=== PATIENT | male | born 1960 | race Caucasian/White ===

== ENCOUNTER 2020-02-10 14:02 | Outpatient (REF) | payer SELFPAY | END 2020-02-10 14:03 | disposition home or self-care (01) | LOC: HO.LAB 14:02 | PROVIDERS: Visit Provider Internal Medicine | DX: Z20.828 Contact with and (suspected) exposure to other viral communicable diseases (principal) | CPT/HCPCS: C9803; U0003 ==

== ENCOUNTER 2023-09-06 13:46 | Outpatient (REF) | payer MEDICARE, MEDICAID, SELFPAY ==
[2023-09-06 16:40] LABS: Alanine Aminotransferase 26 U/L (0-40); Albumin Level 4.4 g/dL (3.5-5.0); Alkaline Phosphatase 115 U/L (39-117); Anion Gap 13 (12-20); Aspartate Amino Transferase 19 U/L (5-37); Bilirubin Total 0.4 mg/dL (0.0-1.0); Blood Urea Nitrogen 17 mg/dL (9-16); Calcium 9.4 mg/dL (8.4-10.2); Carbon Dioxide 22 mmol/L (22-29); Chloride 107 mmol/L (96-108); Cholesterol 172 mg/dL (<200); Estimated Glomerular Filt Rate > 60; Glucose Random 227 mg/dL (60-115); HDL Cholesterol 35 mg/dL (>40); Sodium 138 mmol/L (135-145); Total Protein 7.7 g/dL (6.5-8.0); Triglycerides 533 mg/dL (<150)
== END 2023-09-06 13:47 | disposition home or self-care (01) ==
LOC: HO.HHCL 13:46
PROVIDERS: Visit Provider Registered Nurse
DX: E11.65 Type 2 diabetes mellitus with hyperglycemia (principal); Z79.4 Long term (current) use of insulin
CPT/HCPCS: 36415; 80053; 80061

== ENCOUNTER 2024-07-03 01:53 | Emergency (ER) | payer MEDICARE, SELFPAY ==
[2024-07-03 01:59] VITALS: BP 120/67; PULSE 94; RESP 18; TEMP 36.3; O2SAT 97; BMI 31.7
[2024-07-03 02:53] LABS: MANUAL DIFF FLAG NO
[2024-07-03 02:56] LABS: Basophils Absolute Auto 0.1 X10*3/uL (0.0-0.2); Basophils Percent Auto 0.7 % (0-2); Eosinophils Absolute Auto 0.2 X10*3/uL (0.0-0.4); Eosinophils Percent Auto 2.3 % (0-4); Hematocrit 39.3 % (42.0-52.0); Hemoglobin 13.7 g/dl (14.0-18.0); Imm Gran Abs Auto 0.02 X10*3/uL (0.00-0.03); Imm Gran Pct Auto 0.2 % (0.0-0.4); Mean Corpuscular HGB Conc 34.9 g/dl (31.0-36.0); Mean Corpuscular Hemoglobin 31.2 pg (27.0-33.0); Mean Corpuscular Volume 89.5 fL (80.0-98.0); Mean Platelet Volume 10.5 fL (9.4-12.4); Monocytes Absolute Auto 0.9 X10*3/uL (0.1-1.2); Monocytes Percent Auto 8.6 % (2-11); Neutrophils Percent Auto 59.2 % (45-73); Platelet Count 209 X10*3/uL (160-400); Red Blood Count 4.39 X10*6/uL (4.60-5.80); Red Cell Distribution Width 13.3 % (11.0-16.0); White Blood Count 10.2 X10*3/uL (4.8-10.8)
[2024-07-03 03:24] LABS: Alanine Aminotransferase 33 U/L (0-40); Albumin Level 4.1 g/dL (3.5-5.0); Anion Gap 15 (12-20); Aspartate Amino Transferase 55 U/L (5-37); Bilirubin Total 0.6 mg/dL (0.0-1.0); Blood Urea Nitrogen 16 mg/dL (9-16); Calcium 9.3 mg/dL (8.4-10.2); Carbon Dioxide 23 mmol/L (22-29); Chloride 110 mmol/L (96-108); Creatinine Clr Calc Pharmacy 102.4; Estimated Glomerular Filt Rate > 60; Glucose Random 109 mg/dL (60-115); Potassium 3.9 mmol/L (3.3-5.1); Sodium 144 mmol/L (135-145); Total Protein 7.1 g/dL (6.5-8.0)
[2024-07-03 04:13] LABS: Alkaline Phosphatase 58 U/L (39-117)
[2024-07-03 05:39] VITALS: BP 139/84; PULSE 84; RESP 18; TEMP 36.6; O2SAT 98
[2024-07-03 07:03] LABS: Glucose, Whole Blood 118 mg/dL (60-115)
--- OUTSIDE RECORDS SUMMARY | 2024-07-03 07:13 | XMS_ITS | Clinical Summary ---
Author Organization [employer] Address [address] [place] [address] Care Team Providers Care Credit Processor Name Role Phone [facility] Primary Care Provider [phone] Allergies No known active allergies Medications * This document contains information received from the source organization and may not represent a complete record from that organization. BD AutoShield Duo 30G X 5 MM misc Use as directed to inject insulin four times a day 4 Active aspirin 81 MG EC tablet Take 1 tablet by mouth Once per day. Active cholecalciferol (Vitamin D-3) 25 MCG (1000 UT) tablet Take 1 tablet by mouth Once per day. Active acetaminophen (Tylenol) 325 MG tablet Take 2 tablets by mouth every 4 (four) hours if needed for mild pain. NTE 3 grams/day Active Alcohol Swabs (Alcohol Prep) padsIndications: Type 2 diabetes mellitus with hyperglycemia, with long-term current use of insulin ([facility]) Use one pad each to prep skin prior to injection as directed 100 each 4 Active TRUEplus Lancets 33G miscIndications: Type 2 diabetes mellitus with hyperglycemia, with long-term current use of insulin ([facility]) USE DIRECTED TO TEST BLOOD SUGAR THREE TIMES DAILY 100 each 11 4 Active Continuous Glucose Biological Scientist (FreeStyle Curry 2 [place]) deviceIndication s:Type 2 diabetes mellitus with hyperglycemia, with long-term current use of insulin ([facility]) Scan sensor every 8 hours 1 each 4 Active Continuous Glucose Sensor (FreeStyle Curry 2 Sensor) miscIndications: Type 2 diabetes mellitus with hyperglycemia, with long-term current use of insulin ([facility]) Apply 1 sensor every 14 days 2 each 3 4 Active glucose blood (FREESTYLE LITE) test stripIndications :Type 2 diabetes mellitus with hyperglycemia, with long-term current use of insulin ([facility]) USE DIRECTED TO TEST BLOOD SUGAR THREE TIMES DAILY 100 each 1 4 Active atorvastatin (Lipitor) 20 MG tabletIndication s:Type 2 diabetes mellitus with hyperglycemia, with long-term current use of insulin ([facility]) Take 1 tablet (20 mg) by mouth Once per day. 90 tablet 3 4 11/11/19 25 Active OneTouch Delica Lancets 33G miscIndications: Type 2 diabetes mellitus with hyperglycemia, with long-term current use of insulin ([facility]) Use to test blood sugar three times daily 100 each 11 4 Active Blood Glucose Monitoring Suppl (ONE TOUCH ULTRA 2) w/Device kitIndications:T ype 2 diabetes mellitus with hyperglycemia, with long-term current use of insulin ([facility]) Use to test blood sugar three times daily 1 kit 4 Active glucose blood (OneTouch Ultra) test stripIndications :Type 2 diabetes mellitus with hyperglycemia, with long-term current use of insulin ([facility]) Use to test blood sugar three times daily 100 each 4 11/26/19 25 Active dulaglutide (Trulicity) 1.5 MG/0.5ML solution pen-injectorIndi cations:Type 2 diabetes mellitus without complication, without long-term current use of insulin ([facility]) Inject 1.5 mg under the skin 1 (one) time per week. 4 each 4 Active dorzolamide-mandie lol (Cosopt) 2-0.5 % ophthalmic solutionIndicati ons:Primary open angle glaucoma of both eyes, unspecified glaucoma stage Administer 1 drop into both eyes 2 times daily. 10 mL 5 4 03/05/20 25 Active brimonidine (AlphaGAN P) 0.15 % ophthalmic solutionIndicati ons:Primary open angle glaucoma of both eyes, unspecified glaucoma stage Administer 1 drop into both eyes 2 times daily. 5 mL 5 4 09/02/19 25 Active glucose 4 g chewable tabletIndication s:Type 2 diabetes mellitus without complication, without long-term current use of insulin ([facility]) Chew 4 tablets (16 g) if needed for low blood sugar. 50 tablet 12 4 03/11/20 25 Active losartan (Cozaar) 25 MG tablet TAKE ONE TABLET BY MOUTH EVERY DAY 90 tablet 5 Active Active Problems Problem Noted Date Diagnosed Date Homicidal ideation 06/22/2024 Cannabis use disorder 06/18/2024 Healthcare maintenance 12/17/2023 Overview (12/17/2023): - Previously declined all Type 2 diabetes mellitus wit h hyperglycemia, with long-term current use of insulin 09/17/2023 Overview (12/17/2023): - Does not like CGM Trulicity Foot Exam: Risk 1 10/2023--referred to podiatry for routine foot care Eye Exam: Referred to [facility] Statin: Yes ASA: Yes Bar/Arb: Yes Essential hypertension 09/04/2023 Hyperlipidemia 09/04/2023 Encounters * This document contains information received from the source organization and may not represent a complete record from that organization. Date Type Department Care Team Description 06/17/2024 Patient Outreach [address] [address] Courtney Remy FNP Care Coordination (CHW outreach for [place] housing search-referral completed ) 06/17/[address] [address] Courtney Remy FNP 06/16/[address] [address] Courtney Remy FNP chart prep 06/08/2024 Patient Outreach [address] [address] Courtney Remy FNP Pre-visit Planning ((Unable to reach for PVP screening, LVM)) 04/29/[address] [address] Courtney Remy FNP from Last 3 Months Immunizations Name Administration Dates Next Due Influenza, seasonal, injectable, preservative fr ee 12/18/2023 Pneumococcal Conjugate PCV 20 11/11/2023 Tdap 11/11/2023 Social History Tobacco Use Types Packs/Day Years Used Date Smoking Tobacco: Former Cigarettes Smokeless Tobacco: Never Tobacco Cessation:Counseling Given: Not Answered Alcohol Use Standard Drinks/Week Comments Never 0 (1 standard drink = 0.6 oz pur e alcohol) Alcohol Answer Date Recorded Frequency of Alcohol Consumption Not on file 09/06/2023 Average Number of Drinks Not on file 024 Frequency of Binge Drinking Not on file 08/23 Score 0 09/06/2023 Depression Answer Date Recorded Patient Health Questionnaire-9 Score 8 03/11/2024 Patient Health Questionnaire-9 Score 8 03/11/2024 Last PHQ-9: Questionnaire Data Not on file 1 05/12/2023 Housing Stability Answer Date Recorded What is your housing situation today? I have karin bullock 09/06/[address] you li ve. Do you have problems with any of the following? None of the above 09/06/2023 Food Insecurity Answer Date Recorded Within the past 12 months, y ou worried that your food would run out before you got money to buy more: Never True 09/06/2023 Within the past 12 months,th e food you bought just didn't last and you didn't have enough money to get more: Never True Transportation Answer Date Recorded In the past 12 months, has l ack of transportation kept you from medical appts, meetings, work or from getting things needed for daily living? No 09/06/2023 Utilities Answer Date Recorded In the past 12 months, has t he electric, gas, oil or water company threatened to shut off services in your home? No 09/06/2023 Depression Answer Date Recorded Patient Health Questionnaire-2 Score 2 03/11/2024 Sex and Gender Information Value Date Recorded Sex Assigned at Male 01/22/2022 10:17 AM EDT Legal Sex Male 10:17 AM EDT Gender Identity Male 09/05/2023 2:19 PM EDT Sexual Orientation Don't know 09/05/2023 2: 19 PM EDT Last Filed Vital Signs Vital Sign Reading Time Taken Comments Blood Pressure 128/76 03/11/2024 9:05 AM EST Pulse 64 03/11/2024 9:05 AM EST Temperature 36.5 ??C (97.7 ??F) 03/11/2024 9:05 AM ES T Respiratory Rate 20 03/11/2024 9:05 AM EST Oxygen Saturation 99% 03/11/2024 9:05 AM EST Inhaled Oxygen Concentration - - Weight 113 kg (248 lb 9.6 oz) 03/11/2024 9:05 AM EST Height 185.4 cm (6' 1 ) 03/11/2024 9:05 AM EST Body Mass Index 32.8 03/11/2024 9:05 AM EST Plan of Treatment Upcoming Encounters Date Type Department Care Team (Late st Contact Info) Description 07/08/2024 9:00 AM EDT Office Visit [facility] MEDICINE [address], [place] [phone] [facility] [address] [place], [place] [phone] Health Maintenance Due Date Last Done Comments CT Colonography 1962 Colonoscopy 1962 FIT DNA/Cologuard 1962 FIT 1962 FOBT 1962 HIV Screening 1962 Sigmoidoscopy 1962 Hepatitis C Screening 1980 Diabetes: Urine Protein Screening 1981 Zoster Vaccines (1 of 2) 2012 RSV Patients and Patients Aged 60 years or older (1 - Risk 60-74 years 1-dose series) 2022 Alcohol/Substance Use Screening 09/05/2024 09/06/2023 Lipid Panel 09/05/2024 09/06/2023 SDOH Screening 09/05/2024 09/06/2023 Diabetes: Hemoglobin A1C 09/09/2024 024, 12/18/2023, 09/06/2023 Diabetes: Foot Exam 11/10/2024 11/11/2023, 11/11/2023, 11/11/2023 Depression Screening 03/11/2025 03/11/2024, 03/11/20 24 Tobacco Screening 03/11/2025 03/11/2024 Eye Exam 03/06/2026 03/06/2024, 02/22, 03/05/2024, Additional history exists DTaP/Tdap/Td Vaccines (2 - Td or Tdap) 11/10/2033 11/11/2023 Pneumococcal Vaccine: 50+ Years Completed 11/11/2023 Influenza Vaccine Completed 12/18/2023 COVID-19 Vaccine Completed 03/07/2024, 02/2022, 04/01/2021, Additional history exists Colorectal Cancer Screening Discontinued HIB Vaccines Aged Out No longer eligi ble based on patient's age to complete this topic HPV Vaccines Aged Out No longer eligi ble based on patient's age to complete this topic Hepatitis A Vaccines Aged Out No long er eligible based on patient's age to complete this topic Hepatitis B Vaccines Aged Out No long er eligible based on patient's age to complete this topic IPV Vaccines Aged Out No longer eligi ble based on patient's age to complete this topic Meningococcal Vaccine Aged Out No veda marjorie eligible based on patient's age to complete this topic RSV under 20 months Aged Out No longe r eligible based on patient's age to complete this topic Rotavirus Vaccines Aged Out No longer eligible based on patient's age to complete this topic Procedures Procedure Name Priority Date/Time Associated Diagnosis Comments POCT GLYCATED HEMOGLOBIN, TOTAL Routine 03/11/2024 9:17 AM EST Type 2 diabetes mellitus without complication, without long-term current use of insulin ([facility]) LIPID PANEL, STANDARD Routine 09/06/2023 1:48 PM EDT Type 2 diabetes mellitus with hyperglycemia, with long-term current use of insulin ([facility]) from Last 3 Months or Most Recently Relevant to Health Maintenance Results * (ABNORMAL) POCT HGB A1C (03/11/2024 9:17 AM EST) Hemoglobin A1C 6.2(A) 4.0 - 6.0 % QC Media Lot # [id number] Lot# Expiration Date 176 Blood 03/11/2024 9:17 AM EST [facility] POINT OF CARE TEST ENTER/EDIT ORDERABLES Final Result * (ABNORMAL) Lipid Panel, Standard (09/06/2023 1:48 PM EDT) Triglycerides 533(H) <150 mg/dL [facility] Comment:Desirable Triglyceri de: less than 150 mg/dLBorderline High Triglyceride 150-199 mg/dLHigh Triglyceride: 200-499 mg/dLVery High Triglyceride: greater than or equal to 5OO mg/dL Cholesterol 172 <200 mg/dL [facility] Comment:Desirable Cholestero l: less than 200 mg/dLBorderline High Cholesterol: 200-239 mg/dLHigh Cholesterol: greater than 239 mg/dL LDL Cholesterol Calculated TNP <100 mg/dL [facility] Comment:Unable to calculate the LDL. The formula of Friedwald,Woody, and Ronnie is only valid if the triglycerides areless than 400 mg/dl. HDL Cholesterol 35(L) >40 mg/dL [facility] Comment:Desirable HDL: great er than 40 mg/dL Note: This HDL assay may give artificially low results in patients with liver disease. Blood Venous blood specimen / Unknown 09/06/2023 1:48 PM EDT 09/06/2023 4:11 PM EDT [facility] LAB BLOOD ORDERABLES Final Re sult [facility] [address] [place] [address] [phone] from Last 3 Months or Most Recently Relevant to Health Maintenance [place] [address] [place] [address] STANDARD [employer] MED[employer]ARE REPLACEMENT [id number] Care Teams Credit Processor Relationship Specialty Start Date End Date Courtney Remy FNP [address] [place] [phone] PCP - General Family Medicine 09/09/23
--- OUTSIDE RECORDS SUMMARY | 2024-07-03 07:13 | XMS_ITS | Clinical Summary ---
Author Organization [address] [facility] Address [address] [place] [address] Phone Care Team Providers Care Bass Fisher Name Role Phone Sandrita Courtney Primary Care Provider [phone] Allergies No known active allergies Medications atorvastatin (LIPITOR) 20 mg tablet Take 1 tablet (20 mg total) by mouth 1 (one) time each day. Active clotrimazole (LOTRIMIN) 1 % cream Apply to skin and toenails daily for 12 weeks 01/20/2024 Active dulaglutide (Trulicity) 1.5 mg/0.5 mL pen injector injection Inject 1.5 mg into the skin every 24 hours. Active insulin aspart (Fiasp U-100 Insulin) 100 unit/mL injection Inject 100 Units as directed daily. Active insulin glargine (LANTUS SoloStar) 100 unit/mL (3 mL) injection pen Inject 100 Units into the skin. Active losartan (COZAAR) 25 mg tablet Take 1 tablet (25 mg total) by mouth 1 (one) time each day. Active Active Problems Problem Noted Date Diagnosed Date Mixed hyperlipidemia 01/07/2024 T2DM (type 2 diabetes mellitus) (CMS/[facility] V24, CM S/[facility] V28) 01/07/2024 Encounters Date Type Department Care Team Description 04/21/2024 1:00 PM EST Office Visit Orthopedic Surgery - [place] [address] [facility] [address] [place] [address] Ponce Lozano DPM Controlled type 2 diabetes with neuropathy (CMS/[facility] V24, CMS/[facility] V28) (Primary Dx); Arthritis of both feet; PVD (peripheral vascular disease) ([facility] V24); Dermatophytosis, nail 04/16/2024 5:16 PM EST - 04/16/2024 9:00 PM EST Emergency [facility] Emergency [address] [place] [phone] Yonny Roman DO Chest pain, unspecified type (Primary Dx) Discharge Disposition: Home or Self Care from Last 3 Months Social History Tobacco Use Types Packs/Day Years Used Date Smoking Tobacco: Never Assessed Sex and Gender Information Value Date Recorded Sex Assigned at Male 04/16/2024 5:40 PM EST Legal Sex Male 11:39 AM EDT Gender Identity Male 04/16/2024 5:40 PM EST Sexual Orientation Straight 04/16/2024 5: 40 PM EST Last Filed Vital Signs Vital Sign Reading Time Taken Comments Blood Pressure 125/83 04/16/2024 5:56 PM EST Pulse 88 04/16/2024 5:56 PM EST Temperature 36.7 ??C (98.1 ??F) 04/16/2024 5:56 PM ES T Respiratory Rate 18 04/16/2024 5:56 PM EST Oxygen Saturation 98% 04/16/2024 5:56 PM EST Inhaled Oxygen Concentration - - Weight 113 kg (250 lb) 04/21/2024 1:04 PM EST Height 185.4 cm (6' 1 ) 04/16/2024 12:58 PM EST Body Mass Index 32.98 04/16/2024 12:58 PM EST Plan of Treatment Upcoming Encounters Date Type Department Care Team (Late st Contact Info) Description 07/20/2024 1:00 PM EDT Office Visit Orthopedic Surgery - [place] [address] [phone] Ponce Lozano, TOMMY [address] [address] Health Maintenance Due Date Last Done Comments Diabetes: Annual Foot Exam 1972 Diabetes: Annual Retina Eye Exam 1972 Zoster Vaccines (1 of 2) 2012 RSV Immunization Adult Patients (1 - Risk 60-74 years 1-dose series) 2022 Colorectal Cancer Screening: Colonoscopy 01/05/2024 HIV Screening 01/05/2024 Hepatitis C Screening 01/05/2024 Medicare Annual Wellness Visit 01/05/2024 Social Influencers of Health Screening 01/05/2024 Diabetes: Annual Urine Albumin-Creatinine Ratio (uACR) 01/22/2024 Diabetes: Blood Sugar Control Test (HGBA1C) 09/09/2024 03/11/2024 Depression Screening 03/11/2025 03/11/2024 Diabetes: Annual GFR (Glomerular Filtration Rate) 04/16/2025 04/16/2024 Hypertension/CHF/CAD Annual BMP Blood Test 04/16/2025 04/16/2024 Cholesterol Screening (Lipid Panel) 09/05/2028 09/06/2023 DTaP,Tdap,and Td Vaccines (2 - Td or Tdap) 11/10/2033 11/11/2023 Pneumococcal Vaccine: 50+ Years Completed 11/11/2023 Pneumococcal Vaccine: Pediatrics (0 to 5 Years) and At-Risk Patients (6 to 64 Years) Completed 11/11/2023 Influenza Vaccine Completed 12/18/2023 COVID-19 Vaccine Completed 03/07/2024, 02/2022, 04/01/2021, Additional history exists HIB Vaccines Aged Out No longer eligi [...] on patient's age to complete this topic MMR Vaccines Aged Out No longer eligi ble based on patient's age to complete this topic Meningococcal ACWY Vaccine Aged Out N o longer eligible based on patient's age to complete this topic Meningococcal B Vaccine Aged Out No l onger eligible based on patient's age to complete this topic RSV Immunization Patients Under 20 months Aged Out No longer eligible based on patient's age to complete this topic Varicella Vaccines Aged Out No longer eligible based on patient's age to complete this topic Procedures Procedure Name Priority Date/Time Associated Diagnosis Comments TROPONIN I HIGH SENSITIVITY STAT 04/16/2024 6:17 PM EST XR CHEST 2 VIEWS STAT 04/16/2024 3:49 PM EST CBC WITH AUTO DIFFERENTIAL STAT 04/16/2024 3:36 PM EST B-TYPE NATRIURETIC PEPTIDE STAT 04/16/2024 3:36 PM EST MAGNESIUM STAT 04/16/2024 3:36 PM EST LIPASE STAT 04/16/2024 3:36 PM EST COMPREHENSIVE METABOLIC PANEL STAT 04/16/2024 3:36 PM EST CBC AND DIFFERENTIAL STAT 04/16/2024 3:36 PM EST TROPONIN I HIGH SENSITIVITY STAT 04/16/2024 3:36 PM EST ECG 12-LEAD STAT 04/16/2024 1:09 PM EST ECG ANNOTATED 04/16/2024 from Last 3 Months Results * Troponin I high sensitivity (04/16/2024 6:17 PM EST) Only the most recent of2 resultswithin the time period is included. High Sensitivity Troponin I 4 <=79 ng/L LAB CHEMISTRY METHOD 04/16/2024 7:04 PM EST [facility] Blood Venous blood specimen / Unknown Venipuncture / Unknown 04/16/2024 6:17 PM EST 04/16/2024 6:20 PM EST Narrative [facility] - 04/16/2024 7:04 PM EST High levels of biotin in samples may falsely decrease hsTroponin values. ??Use caution when interpreting hsTroponin results in patients taking biotin who exhibit renal impairment (eGFR <60) or in patients taking more than 20 mg/day of biotin. Scout Florez MD LAB BLOOD ORDERABLES Elsy l Result [facility] [address] [place] [address], [place] [phone] * XR Chest 2 Views (04/16/2024 3:49 PM EST) Anatomical Region Laterality Modality Body Radiographic Bethany ging 04/16/2024 4:04 PM EST Impressions 04/16/2024 4:04 PM EST No evidence of active pulmonary disease. [id number] -------- FINAL REPORT -------- Dictated By: Ward Felix Dictated Date: 04/16/2024 16:04 ET Assigned Physician: Ward Felix Reviewed and Electronically Signed By: Ward Felix Signed Date: 04/16/2024 16:04 ET Workstation ID: [id number] Transcribed By: Self Edit Transcribed Date: 04/16/2024 16:04 ET Narrative 04/16/2024 4:04 PM EST INDICATION: Chest pain FINDINGS: Two views of the chest were obtained. There are no prior studies available for comparison. Lung paula are well inflated without infiltrates or effusions. Cardiomediastinal silhouette is normal in size and shape. Bony structures are within normal limits for the patient's age. Procedure Note Ward Felix MD - 04/16/2024 INDICATION: Chest pain FINDINGS: Two views of the chest were obtained. There are no prior studiesavailable for comparison. Lung paula are well inflated without infiltrates or effusions. Cardiomediastinal silhouette is normal in size and shape. Bony structures are within normal limits for the patient's age. IMPRESSION: No evidence of active pulmonary disease. [id number] -------- FINAL REPORT -------- Dictated By: Ward Felix Dictated Date: 04/16/2024 16:04 ET Assigned Physician: Ward Felix Reviewed and Electronically Signed By: Ward Felix Signed Date: 04/16/2024 16:04 ET Workstation ID: [id number] Transcribed By: Self Edit Transcribed Date: 04/16/2024 16:04 ET us Scout Florez MD IMG XR PROCEDURES Final R esult * (ABNORMAL) CBC auto differential (04/16/2024 3:36 PM EST) [facility] WBC 12.6(H) 4.8 - 10.8 K/mcL LAB HEMETOLOGY METHOD 04/16/2024 4:11 PM [facility] RBC 5.10 4.50 - 5.50 M/mcL LAB HEMETOLOGY METHOD 04/16/2024 4:11 PM [facility] Hemoglobin 15.7 13.5 - 17.5 g/dL LAB HEMETOLOGY METHOD 04/16/2024 4:11 PM [facility] Hematocrit 47.3 42.0 - 54.0 % LAB HEMETOLOGY METHOD 04/16/2024 4:11 PM [facility] MCV 92.2 79.0 - 98.0 FL LAB HEMETOLOGY METHOD 04/16/2024 4:11 PM [facility] MCH 30.6 27.0 - 32.0 pcg LAB HEMETOLOGY METHOD 04/16/2024 4:11 PM [facility] MCHC 33.2 32.0 - 37.0 g/dL LAB HEMETOLOGY METHOD 04/16/2024 4:11 PM [facility] RDW 13.1 11.0 - 15.0 % LAB HEMETOLOGY METHOD 04/16/2024 4:11 PM [facility] Platelets 213 130 - 400 K/mcL LAB HEMETOLOGY METHOD 04/16/2024 4:11 PM [facility] MPV 11.4(H) 7.0 - 11.0 FL LAB HEMETOLOGY METHOD 04/16/2024 4:11 PM [facility] NRBC 0.0 <1.0 % LAB HEMETOLOGY METHOD 04/16/2024 4:11 PM [facility] NRBC Absolute 0.00 <0.10 K/mcL LAB HEMETOLOGY METHOD 04/16/2024 4:11 PM [facility] Neutrophils Relative 58.6 % LAB HEMETOLOGY METHOD 04/16/2024 4:11 PM [facility] Lymphocytes Relative 31.4 % LAB HEMETOLOGY METHOD 04/16/2024 4:11 PM [facility] Monocytes Relative 7.8 % LAB HEMETOLOGY METHOD 04/16/2024 4:11 PM [facility] Eosinophils Relative 1.0 % LAB HEMETOLOGY METHOD 04/16/2024 4:11 PM [facility] Basophils Relative 0.7 % LAB HEMETOLOGY METHOD 04/16/2024 4:11 PM [facility] Immature Granulocytes Relative 0.5 % LAB HEMETOLOGY METHOD 04/16/2024 4:11 PM [facility] Neutrophils Absolute 7.36(H) 1.50 - 7.00 K/mcL LAB HEMETOLOGY METHOD 04/16/2024 4:11 PM [facility] Lymphocytes Absolute 3.95 1.00 - 5.00 K/mcL LAB HEMETOLOGY METHOD 04/16/2024 4:11 PM [facility] Monocytes Absolute 0.98 0.20 - 1.00 K/mcL LAB HEMETOLOGY METHOD 04/16/2024 4:11 PM [facility] Eosinophils Absolute 0.13 0.00 - 0.50 K/mcL LAB HEMETOLOGY METHOD 04/16/2024 4:11 PM [facility] Basophils Absolute 0.09 0.00 - 0.20 K/mcL LAB HEMETOLOGY METHOD 04/16/2024 4:11 PM [facility] Immature Granulocytes Absolute 0.06(H) 0.00 - 0.03 K/mcL LAB HEMETOLOGY METHOD 04/16/2024 4:11 PM EST [facility] Blood Venous blood specimen / Unknown Venipuncture / Unknown 04/16/2024 3:36 PM EST 04/16/2024 4:01 PM EST Scout Florez MD LAB BLOOD ORDERABLES Elsy l Result Performing Organization Address City/[facility]/ZIP Co de Phone Number [facility] [address] [place] [address], [place] [phone] * B-type natriuretic peptide (04/16/2024 3:36 PM EST) [facility] BNP <2 <=100 pcg/mL LAB CHEMISTRY METHOD 04/16/2024 4:47 PM EST [facility] Blood Venous blood specimen / Unknown Venipuncture / Unknown 04/16/2024 3:36 PM EST 04/16/2024 4:01 PM EST Scout Florez MD LAB BLOOD ORDERABLES Elsy l Result Performing Organization Address [facility] Co de Phone Number [facility] [address] [place] [address], [place] [phone] * Magnesium (04/16/2024 3:36 PM EST) [facility] Magnesium 2.4 1.9 - 2.6 mg/dL LAB CHEMISTRY METHOD 04/16/2024 4:37 PM EST [facility] Blood Venous blood specimen / Unknown Venipuncture / Unknown 04/16/2024 3:36 PM EST 04/16/2024 4:01 PM EST Scout Florez MD LAB BLOOD ORDERABLES Elsy l Result Performing Organization Address City/[facility]/ZIP Co de Phone Number [facility] [address] [place] [address], [place] [phone] * (ABNORMAL) Lipase (04/16/2024 3:36 PM EST) [facility] Lipase 79(H) 13 - 75 unit/L LAB CHEMISTRY METHOD 04/16/2024 4:37 PM [facility] Blood Venous blood specimen / Unknown Venipuncture / Unknown 04/16/2024 3:36 PM EST 04/16/2024 4:01 PM EST Scout Florez MD LAB BLOOD ORDERABLES Elsy l Result [facility] [address] [place] [address], [place] [phone] * Comprehensive metabolic panel (04/16/2024 3:36 PM EST) [facility] Sodium 142 133 - 145 mmol/L LAB CHEMISTRY METHOD 04/16/2024 4:39 PM [facility] Potassium 4.0 3.5 - 5.5 mmol/L LAB CHEMISTRY METHOD 04/16/2024 4:39 PM [facility] Chloride 108 96 - 110 mmol/L LAB CHEMISTRY METHOD 04/16/2024 4:39 PM [facility] CO2 29 21 - 32 mmol/L LAB CHEMISTRY METHOD 04/16/2024 4:39 PM [facility] Anion Gap 5 3 - 11 LAB CHEMISTRY METHOD 04/16/2024 4:39 PM [facility] Glucose 99 70 - 100 mg/dL LAB CHEMISTRY METHOD 04/16/2024 4:39 PM [facility] BUN 22 5 - 25 mg/dL LAB CHEMISTRY METHOD 04/16/2024 4:39 PM [facility] Creatinine 1.16 0.70 - 1.30 mg/dL LAB CHEMISTRY METHOD 04/16/2024 4:39 PM [facility] eGFR 72 >=60 mL/min/1. 73m2 LAB CHEMISTRY METHOD 04/16/2024 4:39 PM [facility] Comment:Calculation based on the??Chronic Kidney Disease Epidemiology Collaboration (CKD-EPI) equation refit??without adjustment for race. BUN/Creatinine Ratio 19.0 LAB CHEMISTRY METHOD 04/16/2024 4:39 PM [facility] Calcium 9.4 8.5 - 10.5 mg/dL LAB CHEMISTRY METHOD 04/16/2024 4:39 PM [facility] AST (SGOT) 17 10 - 42 unit/L LAB CHEMISTRY METHOD 04/16/2024 4:39 PM [facility] ALT (SGPT) 25 10 - 60 unit/L LAB CHEMISTRY METHOD 04/16/2024 4:39 PM [facility] Alkaline Phosphatase 74 42 - 121 unit/L LAB CHEMISTRY METHOD 04/16/2024 4:39 PM [facility] Total Protein 8.0 6.0 - 8.0 g/dL LAB CHEMISTRY METHOD 04/16/2024 4:39 PM [facility] Albumin 4.3 3.2 - 5.0 g/dL LAB CHEMISTRY METHOD 04/16/2024 4:39 PM [facility] Total Bilirubin 0.6 0.0 - 1.4 mg/dL LAB CHEMISTRY METHOD 04/16/2024 4:39 PM [facility] Blood Venous blood specimen / Unknown Venipuncture / Unknown 04/16/2024 3:36 PM EST 04/16/2024 4:01 PM EST us Scout Florez MD LAB BLOOD ORDERABLES Elsy angelica Result [facility] [address] [place] [address], * ECG 12 lead (04/16/2024 1:09 PM EST) Ventricular Rate ECG 89 BPM GEMUSE Atrial Rate 89 BPM GEMUSE P-R Interval 170 ms GEMUSE QRS Duration 82 ms GEMUSE Q-T Interval 362 ms GEMUSE QTc 440 ms GEMUSE P Wave [place] 50 degrees GEMUSE R [place] -17 degrees GEMUSE T [place] 51 degrees GEMUSE ECG Interpretation Normal sinus rhythm Normal ECG No previous ECGs available Confirmed by Lester HUNG JOHN ([id number]) on 04/16/2024 4:54:03 PM GEMUSE 04/16/2024 1:09 PM EST 04/16/2024 4:54 PM EST Scout Florez MD ECG ORDERABLES Final Res ult GEMUSE * ECG-Annotated (04/16/2024) Provider Onbase ECG ORDERABLES Final Result from Last 3 Months Insurance MEDICARE ADVANTAGE MEDICAID - [place] Care Teams Bass Fisher Relationship Specialty Start Date End Date [facility] [address] [place] [phone] PCP - General 11/22/23
--- OUTSIDE RECORDS SUMMARY | 2024-07-03 07:13 | XMS_ITS | Encounter Summary ---
Author Organization [employer] Address [address] [place] [address] Care Team Providers Care Rougher Helper Name Role Phone [facility] Primary Care Provider [phone] Encounter Details Date Type Department Care Team ([facility] st Contact Info) Description 10/11/2023 Orders Only [facility]INE [address] [place], [place] [phone] Rebeka Dickey MD [address] [place], [place] [phone] Social History Tobacco Use Types Packs/Day Years Used Date Smoking Tobacco: Former Cigarettes Smokeless Tobacco: Never Alcohol Use Standard Drinks/Week Comments Never 0 (1 standard drink = 0.6 oz pur e alcohol) Alcohol Answer Date Recorded Frequency of Alcohol Consumption Not on file 09/06/2023 Average Number of Drinks Not on file 024 Frequency of Binge Drinking Not on file 08/23 Score 0 09/06/2023 Depression Answer Date Recorded Patient Health Questionnaire-9 Score 0 09/06/2023 Patient Health Questionnaire-9 Score 0 09/06/2023 Last PHQ-9: Questionnaire Data Not on file 0 09/06/2023 Housing Stability Answer Date Recorded What is [...] Answer Date Recorded Patient Health Questionnaire-2 Score 0 09/06/2023 Sex and Gender Information Value Date Recorded Sex Assigned at Male 01/22/2022 10:17 AM EDT Legal Sex Male 10:17 AM EDT Gender Identity Male 09/05/2023 2:19 PM EDT Sexual Orientation Don't know 09/05/2023 2: 19 PM EDT documented as of this encounter Plan of Treatment Upcoming Encounters Date Type Department Care Team (Late st Contact Info) Description 07/08/2024 9:00 AM EDT Office Visit [facility] MED[facility]INE [address] [place] [address] Courtney Remy FNP [address] [place] [address] documented as of this encounter Visit Diagnoses Not on filedocumented in this encounter Additional Health Concerns Assessment Noted Time PHQ-9 Depression Total Score: 0 09/06/19 24 12:53 PM EDT documented as of this encounter Care Teams Rougher Helper Relationship Specialty Start Date End Date Courtney Remy FNP [address] [place] [address] PCP - General Family Medicine 09/09/23 documented as of this encounter
--- OUTSIDE RECORDS SUMMARY | 2024-07-03 07:13 | XMS_ITS | Encounter Summary ---
Author Organization [employer] Address [address] [place] [address] Care Team Providers Care Equipment Specialist Name Role Phone [facility] Primary Care Provider [phone] Reason for Visit * Reason Onset Date Comments Med Refill 12/02/2023 Encounter Details Date Type Department Care Team ([facility] st Contact Info) Description 12/02/2023 Telephone [facility] MEDICINE [address] [place], [place] [phone] [facility] [address] [place] [address] Med Refill Social History Tobacco Use Types Packs/Day Years [...] Date Recorded Patient Health Questionnaire-9 Score 0 11/11/2023 Patient Health Questionnaire-9 Score 0 11/11/2023 Last PHQ-9: Questionnaire Data Not on file 0 11/11/2023 Housing Stability Answer Date Recorded What is [...] Date Recorded Patient Health Questionnaire-2 Score 0 11/11/2023 Sex and Gender Information Value Date Recorded Sex Assigned at Male 01/22/2022 10:17 AM EDT Legal Sex Male 10:17 AM EDT Gender Identity Male 09/05/2023 2:19 PM EDT Sexual Orientation Don't know 09/05/2023 2: 19 PM EDT documented as of this encounter Miscellaneous Notes * Telephone Encounter - Opal Rai LPN - 12/02/2023 2:09 PM EDT See TC from 11/26/23 supplies sent. * Telephone Encounter - Parisa Ocampo - 12/02/2023 2:01 PM EDT TC from pt requesting medication refill. Medications needing refill : glucose blood (FREESTYLE LITE) test strip To be sent to: [facility] - [place], [place] - [address] [place] [address] documented in this encounter Plan of Treatment Upcoming Encounters Date Type Department Care Team (Late st Contact Info) Description 07/08/2024 9:00 AM EDT Office Visit [facility] MEDICINE [address] [place] [address] [place], Courtney, SENIOR FIELD SERVICE ENGINEER [address] [place] [address] documented as of this encounter Visit Diagnoses Not on filedocumented in this encounter Additional Health Concerns Assessment Noted Time PHQ-9 Depression Total Score: 0 11/11/19 11:00 AM EDT documented as of this encounter Care Teams Equipment Specialist Relationship Specialty Start Date End Date Courtney Remy FNP [address] [place] [address] PCP - General Family Medicine 09/09/23 documented as of this encounter
--- NOTE | 2024-07-03 07:43 | PC.NURSE ---
Pt biba for low blood sugar, per EMS poc was 97 en route, poc upon arrival 118. Pt a/ox3, respirations even and unlabored, no increased wob, endorsing sob- speaking in full sentences, maintaining O2 sat mid 90s on RA. Denies cp/abd pain, n/v/d. Pt stated to registration he would like to speak with crisis. Pt changed over with security and technology applications consultant Deja. Pt calm/cooperative with staff, denies SI, endorsing HI. States his family recently got evicted from their apartment and are living in the [place] in a tent. Denies ETOH use/ endorsing marijuana use- denies other substances. boiler washer made aware of pt situation. Plan for labs and assessment from CARE team. Call strange within reach, all needs met at this time.
[2024-07-03 07:48] VITALS: BP 118/75; PULSE 76; RESP 18; TEMP 36.7; O2SAT 94
--- NOTE | 2024-07-03 08:03 | ED_ITS ---
HPI - General Adult General Chief complaint: General Medical Stated complaint: Pt wants eval on blood sugar at 90 & nervous Time Seen by Provider: 07/03/24 07:55 History of Present Illness HPI narrative: Patient is 63 years old history of being homeless. Has a history of diabetes. Patient was outside. Worry about his sugar came to the ER. Has no chest pain or shortness breath no dizziness no nausea no vomiting no SI wants to talk to care team. Related Data Allergies Allergy/AdvReac Type Severity Reaction Status Date / Time No Known Allergies Allergy Verified 07/03/24 02:01 Review of Systems 2 Review of Systems: No chest pain or shortness breath no nausea no vomiting Yes all other systems are reviewed and are negative [facility] Past Medical History Attestation statement: The following information was validated with the patient. Social History Social History Smoked in Last 30 Days: No Use of substances other than those prescribed or required for medical reasons: No Advance Directives: No Advance Directives Information Provided: Yes Do you have a plan to hurt others: No Plan Physical Exam ED Vital Signs: Vital Signs - 24 hr 07/03/24 01:59 07/03/24 05:39 07/03/24 07:48 Temperature 97.3 F 97.8 F 98.0 F Pulse Rate 94 84 76 Respiratory Rate 18 18 18 Blood Pressure 120/67 139/84 118/75 Pulse Oximetry 97 98 94 Oxygen Delivery Method Room Air Room Air Room Air BMI result Body Mass Index 31.7 Appearance: Alert. Oriented X3. No acute distress. Eyes: Pupils equal, round and reactive to light. ENT: Pharynx normal. Neck: Normal inspection. Neck supple. No lymph nodes noted. No crepitus CVS: Normal heart rate and rhythm. Pulses normal. Normal S1 and S2 Respiratory: No respiratory distress. Breath sounds normal. No Wheezing. No rales Abdomen: Soft and nontender. No rigidity. No distention. good BS x4 Skin: Skin warm and dry. Normal skin color. Normal skin turgor. Extremities: No lower extremity edema. Neurovascular intact to all extremities. No Lacerations. No Rash Neuro: Oriented X 3. No motor deficit. No sensory deficit. Moving all extermities. No slurred speech Medical Decision Making Medical Decision Making MDM Narrative: Patient is 63-year-old male presented today worry about his sugar. Patient's electrolytes showed a glucose of 109. No acute distress well-appearing awaiting evaluation by care team as patient claims he has homicidal tendencies. He is also homeless. Differential Diagnosis Differential Diagnoses: The differential diagnosis associated with the presentation includes Admission/Observation Consideration of admission/observation: Escalation of care including admission/observation considered Sugar is 109 no need to admit Consult Healthcare Provider Management of the patient was discussed with: Behavioral Health Provider Lab Data 07/03/24 02:49 07/03/24 02:49 Labs: Lab Results 07/03/24 07/03/24 07/03/24 Range/Units 02:49 02:53 08:14 WBC 10.2 (4.8-10.8) X10*3/uL RBC 4.39 L (4.60-5.80) X10*6/uL Hgb 13.7 L (14.0-18.0) g/dl Hct 39.3 L (42.0-52.0) % MCV 89.5 (80.0-98.0) fL MCH 31.2 (27.0-33.0) pg MCHC 34.9 (31.0-36.0) g/dl RDW 13.3 (11.0-16.0) % Plt Count 209 (160-400) X10*3/uL MPV 10.5 (9.4-12.4) fL Immature Gran % (Auto) 0.2 (0.0-0.4) % Neut % (Auto) 59.2 (45-73) % Lymph % (Auto) 29.0 (20-40) % [place] % (Auto) 8.6 (2-11) % Eos % (Auto) 2.3 (0-4) % Baso % (Auto) 0.7 (0-2) % Lymph # (Auto) 3.0 (1.2-4.9) X10*3/uL [place] # (Auto) 0.9 (0.1-1.2) X10*3/uL Eos # (Auto) 0.2 (0.0-0.4) X10*3/uL Baso # (Auto) 0.1 (0.0-0.2) X10*3/uL Abs Immat Gran (auto) 0.02 (0.00-0.03) X10*3/uL Absolute Neuts (auto) 6.0 (2.0-8.3) x10*3/uL Absolute Nucleated RBC 0.000 (0.0-0.012) X10*3/uL Nucleated RBC % (auto) 0.0 (0.0-0.2) /100WBC Sodium 144 (135-145) mmol/L Potassium 3.9 (3.3-5.1) mmol/L Chloride 110 H (96-108) mmol/L Carbon Dioxide 23 (22-29) mmol/L Anion Gap 15 (12-20) BUN 16 (9-16) mg/dL Creatinine 0.98 (0.5-1.4) mg/dL Estim Creat Clear Calc 102.4 Estimated GFR > 60 POC Glucose 118 H (60-115) mg/dL Random Glucose 109 (60-115) mg/dL Calcium 9.3 (8.4-10.2) mg/dL Total Bilirubin 0.6 (0.0-1.0) mg/dL AST 55 H (5-37) U/L ALT 33 (0-40) U/L Alkaline Phosphatase 58 (39-117) U/L Total Protein 7.1 (6.5-8.0) g/dL Albumin 4.1 (3.5-5.0) g/dL Salicylates < 5.0 L (15-30) mg/dL Acetaminophen < 3 (<30) mcg/mL Social Determinants Patient?s care significantly limited by Social Determinants of Health including: Problems related to primary support group and Unemployment Discharge Plan Discharge Clinical Impression: Diabetes Patient Disposition: Home, Self-Care Instructions: Diabetes and Nutrition (ED), Diabetes and Exercise (ED) Referrals: Courtney Remy FNP [Primary Care Provider] - 07/06/24 Print Language: Nepali
[2024-07-03 08:52] LABS: Acetaminophen LAB < 3 mcg/mL (<30); Salicylate < 5.0 mg/dL (15-30)
[2024-07-03 11:15] VITALS: BP 119/78; PULSE 78; RESP 19; TEMP 36.4; O2SAT 97
[2024-07-03 11:39] VITALS: BP 119/78; PULSE 78; RESP 19; TEMP 36.4; O2SAT 97
== END 2024-07-03 11:39 | disposition home or self-care (01) ==
PROVIDERS: Emergency Provider Emergency Medicine Emergency Medical Services; PCP Registered Nurse
DX: E11.65 Type 2 diabetes mellitus with hyperglycemia (principal); Z79.899 Other long term (current) drug therapy
CPT/HCPCS: 36415; 80053; 80143; 80179; 82947; 85025; 99283; 99284

== ENCOUNTER 2024-07-06 20:48 | Inpatient (IN) | payer OTHER, SELFPAY ==
--- NOTE | ~2024-07-06 | CT_ITS ---
CLINICAL HISTORY: New onset personality change? CT head without contrast Comparison: None Findings: The size and shape of the ventricular system is within normal limits for this patient's age. Minor areas of low-attenuation are seen within the periventricular and deep white matter. Ovalle-white differentiation is well maintained. No midline shift or mass effect. No intracranial hemorrhage. No calvarial fractures. Minimal to mild mucosal thickening within the anterior ethmoid air cells, [id number]. There is a 5 mm osteoma within the right anterior ethmoid air cells. Minor mucosal thickening along the inferior bilateral frontal sinuses. IMPRESSION: 1. No acute intracranial findings. Specifically, no hemorrhage or acute territorial infarct. 2. Minimal to mild paranasal sinus disease. This document has been electronically signed by: Adrián Gary MD on 07/07/2024 00:13:11
[2024-07-06 20:54] VITALS: BP 127/71; PULSE 98; RESP 18; TEMP 36.1; O2SAT 95; BMI 31.7
--- NOTE | 2024-07-06 21:42 | ED.PSYCH ---
HPI - Psych General Chief Complaint: Psychiatric Symptoms Stated Complaint: crisis with hurting self and others Time Seen by Provider: 07/06/24 21:10 Source: patient Mode of arrival: EMS Limitations: no limitations History of Present Illness ED Provider: HPI Narrative: Patient's history of depression homeless for last 2 weeks feeling increasingly depressed and suicidal and homicidal with no plan noncompliant to his medications no substance abuse Related Data Home Medications ?Medication ?Instructions ?Recorded ?Confirmed atorvastatin 20 mg tablet 20 mg PO DAILY 07/06/24 07/06/24 dulaglutide 1.5 mg/0.5 mL 1.5 mg subcut QWEEK 07/06/24 07/06/24 subcutaneous pen injector (Trulicity) losartan 25 mg tablet 25 mg PO DAILY 07/06/24 07/06/24 Allergies Allergy/AdvReac Type Severity Reaction Status Date / Time No Known Allergies Allergy Verified 07/06/24 20:58 Review of Systems Review of Systems: Yes all other systems are reviewed and are negative [facility] Social History Social History Patient Tobacco Use Status: Never used Tobacco Smoked in Last 30 Days: No Advance Directives: No Advance Directives Information Provided: Yes Do you have a plan to hurt others: No Plan Nutrition Risks: No Nutritional Risk Physical Exam Vital Signs: Vital Signs: Last Vital Signs Temp 98.5 F 07/07/24 08:33 Pulse 71 07/07/24 08:33 Resp 16 07/07/24 08:33 BP 115/66 07/07/24 08:33 Pulse Ox 96 07/07/24 08:33 O2 Del Method Room Air 07/07/24 08:33 BMI result Body Mass Index 31.7 Appearance: Alert. Oriented X3. No acute distress. Eyes: PERRLA, No Nystagmus ENT: Pharynx normal. Oral Mucosa moist Neck: Normal inspection. Neck supple. CVS: Normal heart rate and rhythm. Pulses normal. Respiratory: No respiratory distress. Equal air entry bilateral, no wheezing/rales/rhonchi Abdomen: Soft and nontender. Bowel sounds are present, no mass palpable, no CVA tenderness Skin: Skin warm and dry. Normal skin color. Normal skin turgor. Extremities: No lower extremity edema. No calf tenderness psych: Fused frustrated and depressed suicidal and homicidal ideation no delusion or hallucination Neuro: Oriented X 3. No motor deficit. No sensory deficit.No cerebellar signs , cranial nerves II-XII intact Course Reevaluation(s) Reevaluation #1: Time: 09:01 Date: 07/07/24 Provider: Ervin Tipton MD Patient in physician observation for psychiatric evaluation.? No acute events reported overnight. No current complaints. VS stable.? Patient is in bed search status/pending CARE team evaluation. Will continue to monitor. Reevaluation #2: pt will be admited to M3 Time: 13:02 Medications Administered Discontinued Medications Generic Name Dose Route Start Last Admin Trade Name Freq PRN Reason Stop Dose Admin Atorvastatin Calcium 20 mg 07/07/24 09:00 07/07/24 08:33 Atorvastatin Calcium 20 Mg Tablet PO Not Given DAILY RICKEY Losartan Potassium 25 mg 07/07/24 09:00 07/07/24 08:34 Losartan Potassium 25 Mg Tablet PO Not Given DAILY RICKEY Protocol Medical Decision Making Medical Decision Making [facility] Narrative: Patient with history of depression SI and HI homeless medically cleared for care team to evaluate the patient, noncompliant to his medications Lab Data [facility] Lab Attestation statement: I reviewed the patient's lab results. 07/06/24 21:43 07/06/24 21:43 Labs: Lab Results 07/06/24 07/06/24 Range/Units 21:43 22:01 WBC 11.4 H (4.8-10.8) X10*3/uL RBC 4.29 L (4.60-5.80) X10*6/uL Hgb 13.5 L (14.0-18.0) g/dl Hct 39.2 L (42.0-52.0) % MCV 91.4 (80.0-98.0) fL MCH 31.5 (27.0-33.0) pg MCHC 34.4 (31.0-36.0) g/dl RDW 13.5 (11.0-16.0) % Plt Count 192 (160-400) X10*3/uL MPV 11.2 (9.4-12.4) fL Immature Gran % (Auto) 0.4 (0.0-0.4) % Neut % (Auto) 68.9 (45-73) % Lymph % (Auto) 22.0 (20-40) % [place] % (Auto) 6.7 (2-11) % Eos % (Auto) 1.5 (0-4) % Baso % (Auto) 0.5 (0-2) % Lymph # (Auto) 2.5 (1.2-4.9) X10*3/uL [place] # (Auto) 0.8 (0.1-1.2) X10*3/uL Eos # (Auto) 0.2 (0.0-0.4) X10*3/uL Baso # (Auto) 0.1 (0.0-0.2) X10*3/uL Abs Immat Gran (auto) 0.04 H (0.00-0.03) X10*3/uL Absolute Neuts (auto) 7.8 (2.0-8.3) x10*3/uL Absolute Nucleated RBC 0.000 (0.0-0.012) X10*3/uL Nucleated RBC % (auto) 0.0 (0.0-0.2) /100WBC Sodium 145 (135-145) mmol/L Potassium 4.0 (3.3-5.1) mmol/L Chloride 113 H (96-108) mmol/L Carbon Dioxide 25 (22-29) mmol/L Anion Gap 11 L (12-20) BUN 17 H (9-16) mg/dL Creatinine 1.14 (0.5-1.4) mg/dL Estim Creat Clear Calc 88.0 Estimated GFR > 60 Random Glucose 114 (60-115) mg/dL Calcium 9.5 (8.4-10.2) mg/dL Total Bilirubin 0.4 (0.0-1.0) mg/dL AST 39 H (5-37) U/L ALT 29 (0-40) U/L Alkaline Phosphatase 62 (39-117) U/L Total Protein 6.9 (6.5-8.0) g/dL Albumin 4.2 (3.5-5.0) g/dL Urine Color Dark Yellow Urine Appearance Clear Urine pH 5.5 (5.0-9.0) Ur Specific [place] >= 1.030 H (1.005-1.025) Urine Protein Trace (Neg-Trace) mg/dL Urine Glucose (UA) Negative (Negative) mg/dL Urine Ketones Trace (Negative) mg/dL Urine Blood Trace H (Negative) Urine Nitrite Negative (Negative) Ur Leukocyte Esterase Negative (Negative) Urine RBC 11-20 H (0-2) /HPF Urine WBC 0-5 (0-5) /HPF Ur Squamous Epith Cells 0-2 (0-2) /HPF Urine Bacteria None Seen (None Seen) Hyaline Casts 0-2 (0-2) /LPF Urine Opiates Screen Not Detected (Not Detect) Ur Buprenorphine Scrn Not Detected (Not Detect) ng/mL Ur Oxycodone Screen Not Detected (Not Detect) ng/mL Urine Methadone Screen Not Detected (Not Detect) ng/mL Urine Fentanyl Screen Not Detected (Not Detect) Ur Barbiturates Screen Not Detected (Not Detect) Ur Phencyclidine Scrn Not Detected (Not Detect) Ur Amphetamines Screen Not Detected (Not Detect) U Benzodiazepines Scrn Not Detected (Not Detect) Urine Cocaine Screen Not Detected (Not Detect) U Marijuana (THC) Screen POSITIVE H (Not Detect) Ethyl Alcohol < 10 mg/dL Independent Interpretation I performed an independent interpretation of an: CT Scan Radiology Impression Discussion of test interpretation with radiology: I have reviewed the radiologist's reading. Radiologist Impression: [place] [id number] CT Scan Report Signed Patient: Piero Long MR#: [id number] : 1960 Acct:[id number] Age/Sex: 63 / M ADM Date: 07/06/24 Loc: .ED Attending Dr: Ordering Physician: Edis Kapoor MD Date of Service: 07/06/24 Procedure(s): CT head/brain wo IV con Accession Number(s): [id number] cc: [employer] REPROGRAPHICS TECHNICIAN; Edis Kapoor MD~ Report Number: [id number]: Total DLP = 648.00 mGy-cm CLINICAL HISTORY: New onset personality change? CT head without contrast Comparison: None Findings: The size and shape of the ventricular system is within normal limits for this patient's age. Minor areas of low-attenuation are seen within the periventricular and deep white matter. Ovalle-white differentiation is well maintained. No midline shift or mass effect. No intracranial hemorrhage. No calvarial fractures. Minimal to mild mucosal thickening within the anterior ethmoid air cells, [id number]. There is a 5 mm osteoma within the right anterior ethmoid air cells. Minor mucosal thickening along the inferior bilateral frontal sinuses. IMPRESSION: 1. No acute intracranial findings. Specifically, no hemorrhage or acute territorial infarct. 2. Minimal to mild paranasal sinus disease. This document has been electronically signed by: Adrián Gary MD on 07/07/2024 00:13:11 Discharge Plan Discharge Clinical Impression: Suicidal ideation, Depression Patient Disposition: Admitted As Inpatient Interventions: [place]-Suicide Risk Severity Scale Last Done: 07/07/24 00:01 Admission Worksheet (ED) Last Done: 07/07/24 12:33 Discharge Date/Time: 07/07/24 13:00
[2024-07-06 21:53] LABS: MANUAL DIFF FLAG NO
[2024-07-06 21:54] LABS: Basophils Absolute Auto 0.1 X10*3/uL (0.0-0.2); Basophils Percent Auto 0.5 % (0-2); Eosinophils Absolute Auto 0.2 X10*3/uL (0.0-0.4); Eosinophils Percent Auto 1.5 % (0-4); Hematocrit 39.2 % (42.0-52.0); Hemoglobin 13.5 g/dl (14.0-18.0); Imm Gran Abs Auto 0.04 X10*3/uL (0.00-0.03); Imm Gran Pct Auto 0.4 % (0.0-0.4); Lymphocytes Absolute Auto 2.5 X10*3/uL (1.2-4.9); Mean Corpuscular HGB Conc 34.4 g/dl (31.0-36.0); Mean Corpuscular Hemoglobin 31.5 pg (27.0-33.0); Mean Corpuscular Volume 91.4 fL (80.0-98.0); Mean Platelet Volume 11.2 fL (9.4-12.4); Monocytes Absolute Auto 0.8 X10*3/uL (0.1-1.2); Monocytes Percent Auto 6.7 % (2-11); Neutrophils Absolute Auto 7.8 x10*3/uL (2.0-8.3); Neutrophils Percent Auto 68.9 % (45-73); Platelet Count 192 X10*3/uL (160-400); Red Blood Count 4.29 X10*6/uL (4.60-5.80); Red Cell Distribution Width 13.5 % (11.0-16.0); White Blood Count 11.4 X10*3/uL (4.8-10.8)
[2024-07-06 22:10] LABS: Alanine Aminotransferase 29 U/L (0-40); Albumin Level 4.2 g/dL (3.5-5.0); Alkaline Phosphatase 62 U/L (39-117); Anion Gap 11 (12-20); Aspartate Amino Transferase 39 U/L (5-37); Bilirubin Total 0.4 mg/dL (0.0-1.0); Blood Urea Nitrogen 17 mg/dL (9-16); Calcium 9.5 mg/dL (8.4-10.2); Carbon Dioxide 25 mmol/L (22-29); Chloride 113 mmol/L (96-108); Estimated Glomerular Filt Rate > 60; Glucose Random 114 mg/dL (60-115); Sodium 145 mmol/L (135-145); Total Protein 6.9 g/dL (6.5-8.0)
[2024-07-06 22:15] LABS: Appearance Urine Clear; Color Urine Dark Yellow; Glucose Urine UA Negative (Negative); Leukocyte Esterase Urine Negative (Negative); Nitrite Urine Negative (Negative); PH 5.5 (5.0-9.0); Specific Gravity - Urine >= 1.030 (1.005-1.025); UMIC TRIGGER UA YES; Urine Blood Trace (Negative); Urine Ketones Trace mg/dL (Negative); Urine Protein Trace mg/dL (Neg-Trace)
[2024-07-06 22:17] LABS: Ethanol < 10 mg/dL
[2024-07-06 22:23] LABS: Bacteria Urine None Seen (None Seen); Hyaline Casts Urine 0-2 /LPF (0-2); Squamous Epithelial Cell Urine 0-2 /HPF (0-2); WBC Urine 0-5 /HPF (0-5)
[2024-07-06 22:27] LABS: Amphetamine Screen Urine Not Detected (Not Detect); Barbiturates, Urine Not Detected (Not Detect); Benzodiazepines Screen Urine Not Detected (Not Detect); Buprenorphine Scr Not Detected (Not Detect); Cannabinoid Screen Urine POSITIVE (Not Detect); Cocaine Screen Urine Not Detected (Not Detect); Fentanyl, urine Not Detected (Not Detect); Methadone Screen, Urine Not Detected (Not Detect); Opiate Screen Urine Not Detected (Not Detect); Oxycodone Screen Urine Not Detected (Not Detect); Phencyclidine Screen Urine Not Detected (Not Detect)
--- NOTE | 2024-07-07 | ECG_ITS ---
Test Reason : CHECK QTC Blood Pressure : */* mmHG Vent. Rate : 71 BPM Atrial Rate : 71 BPM P-R Int : 198 ms QRS Dur : 86 ms QT Int : 380 ms P-R-T Axes : 52 24 45 degrees QTcB Int : 412 ms Normal sinus rhythm Normal ECG No previous ECGs available Referred By: Ervin Tipton Electronically Signed By: COURT MORSE MD
--- NOTE | 2024-07-07 05:33 | PC.NURSE ---
Patient slept through the night, no distress observed/reported, med rec completed/pending provider's approval, disposition per care team is section-12 inpatient bed search, Head CT negative, 15 minutes safety check, no behavior and safety concerns, will continue to monitor.
--- NOTE | 2024-07-07 07:26 | PC.NURSE ---
Assumed care for pt at 0645. Pt is currently watching TV in the common area. Pt ate breakfast. No acute concerns at this time. Continue plan of care for inpatient bed search,
--- NOTE | 2024-07-07 07:59 | PHA.MEDREC ---
Pharmacy Consult ? Medication Reconciliation Pharmacy has REVIEWED the medication reconciliation COMPLETED by nursing. Pt takes Trulicity on Saturday.
[2024-07-07 08:33] VITALS: BP 115/66; PULSE 71; RESP 16; TEMP 36.9; O2SAT 96
[2024-07-07 13:10] VITALS: BP 134/95; PULSE 86; TEMP 36.1; O2SAT 97
[2024-07-07 13:32] LABS: Alanine Aminotransferase 28 U/L (0-40); Albumin Level 4.2 g/dL (3.5-5.0); Anion Gap 9 (12-20); Aspartate Amino Transferase 38 U/L (5-37); Bilirubin Total 0.6 mg/dL (0.0-1.0); Blood Urea Nitrogen 16 mg/dL (9-16); Calcium 9.5 mg/dL (8.4-10.2); Carbon Dioxide 26 mmol/L (22-29); Chloride 110 mmol/L (96-108); Creatinine Clr Calc Pharmacy 115.3; Estimated Glomerular Filt Rate > 60; Glucose Random 102 mg/dL (60-115); Sodium 141 mmol/L (135-145); Total Protein 7.3 g/dL (6.5-8.0)
[2024-07-07 13:43] VITALS: BMI 31.9
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
[2024-07-07 17:20] LABS: Alkaline Phosphatase 67 U/L (39-117)
[2024-07-07 20:00] VITALS: BP 117/65; PULSE 80; TEMP 36.4; O2SAT 98
[2024-07-07] MEDS: traZODone HCL 50 MG TABLET PO (20:39)
[2024-07-07] MEDS: hydrOXYzine HCL 25 MG TABLET PO (20:39)
[2024-07-07] MEDS: Atorvastatin Calcium 20 MG TABLET PO (20:40)
[2024-07-07] MEDS: Losartan Potassium 25 MG TABLET PO (20:40)
[2024-07-08 07:58] VITALS: BP 135/98; PULSE 86; TEMP 36.4; O2SAT 97
[2024-07-08 09:13] LABS: Cholesterol 112 mg/dL (<200); HDL Cholesterol 35 mg/dL (>40); LDL Cholesterol Calculated 45 mg/dL (<100); Triglycerides 163 mg/dL (<150)
[2024-07-08 09:37] LABS: Estimated Average Glucose 111 mg/dL; Hemoglobin A1C 144.9962 umol/L; Hemoglobin A1c % 5.5 % (<6.0); Total Hemoglobin (HGBA1C) 3953.5231 umol/L
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
--- NOTE | 2024-07-08 15:37 | MHC.CLN ---
NUTRITION ROUTINE NUTRITION CONSULT. DIET=REGULAR. A1C=5.5 ON 07/08 SHOWING WELL CONTROLLED BLOOD GLUCOSE. RANDOM GLUCOSE 07/06 AND 07/07 WITHIN NORMAL LIMITS. NO ADDITIONAL NUTRITION INTERVENTIONS AT THIS TIME.
[2024-07-08 17:43] LABS: Glucose, Whole Blood 100 mg/dL (60-115)
[2024-07-08 20:00] VITALS: BP 122/75; PULSE 91; TEMP 36.4; O2SAT 91
[2024-07-08] MEDS: traZODone HCL 50 MG TABLET PO (20:29)
[2024-07-08] MEDS: Atorvastatin Calcium 20 MG TABLET PO (20:29)
[2024-07-08 20:30] VITALS: BP 94/68
[2024-07-08] MEDS: Losartan Potassium 25 MG TABLET PO (20:30)
[2024-07-08] MEDS: hydrOXYzine HCL 25 MG TABLET PO (20:31)
[2024-07-09 00:13] LABS: Glucose, Whole Blood 125 mg/dL (60-115)
[2024-07-09 07:00] VITALS: BMI 31.9
[2024-07-09 07:56] LABS: Glucose, Whole Blood 120 mg/dL (60-115)
[2024-07-09 08:00] VITALS: BP 119/80; PULSE 85; TEMP 36.3
--- NOTE | 2024-07-09 11:20 | P.PNPSI_ITS ---
Subjective Subjective Date of Service: 07/09/24 Reason For Visit: depressed SI Subjective Notes: Conditional Voluntary Healthcare Proxy: No Guardianship: No Medical Problems Affecting Mental Status: No Interim History: Pt reports no supply of Trulicity. Rx sent to [facility] pharmacy. Insurance requires TRENA. This was done via phone with [employer] [phone]. Reference # [id number]. ER medical report sent to them per their request to fax [phone]. They will respond in 72 hours via fax. Original order from [facility]. Pt with several complaints about the unit-will refuse labs, cites fear of needles but my tattoos were necessary . I am not your experiment. States he will not do groups, medicine is not an option. Demands one hour daily to watch TV on his phone- your TV programs promote violence. States he will have a family meeting with and son, we need housing . Continues with HI toward one man who is currently not in [place] whom he believes is the cause of him losing his home. States he feels like he is being pushed and you need to remember I am trained to kill . Discussed pt's threatening stature, unit policies, and realistic goals for this in pt stay. He verbalized understanding. Team report pt fell this a.m. without injury-discussed with him, yes, I stepped on my own foot and fell. I am not hurt in any way. Tearful at times, worried about his future. I just want to be with my family. We just want to be left alone . Medication Compliance: No Side effects from medications: No Attending Groups: No Review of Systems Acute medical concerns: No Review of Systems Review of Systems Reports 80% hearing loss Mental Status Exam Mental Status Exam Patient Appearance: Fatigued Patient Orientation: Person, Place, Time and Situation Level of Consciousness: Alert Patient Behavior: Talkative, Aggressive, Anxious, Fearful, Resistive to Care, Fatigued, Distractible and Good Eye Contact Mood Description: Depressed and Angry Affect Description: Flat Patient Cognition Impaired: No Ability to Follow Directions: Good Speech Pattern: Spontaneous Speech Memory Description: Intact Hallucinations: None (hx of perceptual alterations of family members who have passed) Delusions: Not Present Thought Process: Distracted and Rumination Thought Content: positive for Obsessional Thoughts, positive for Circumstantial, positive for Perseveration, positive for Suicidal Ideation (denies today) and positive for Homicidal Ideation Depressive Symptoms: Increased Anxiety, Increased Irritability, Hopelessness, Thoughts of /Suicide (denies today), Low Self Esteem and Difficulty Concentrating Abnormal Motor Activity Signs and Symptoms: Agitation and Restlessness Judgement: Good Diagnostics Vital Signs (24Hr): Vital Signs - 24 hr 07/08/24 20:00 07/08/24 20:30 07/09/24 08:00 Temperature 97.6 F 97.4 F Pulse Rate 91 85 Blood Pressure 122/75 94/68 119/80 Pulse Oximetry 91 L Oxygen Delivery Method Room Air BMI result Body Mass Index 31.9 Labs 07/06/24 21:43 07/07/24 12:58 Labs: Laboratory Results - last 48 hr 07/07/24 07/07/24 07/08/24 07:59 12:58 08:22 Sodium 141 Potassium 4.0 Chloride 110 H Carbon Dioxide 26 Anion Gap 9 L BUN 16 Creatinine 0.87 Estim Creat Clear Calc 115.3 Estimated GFR > 60 POC Glucose 125 H Random Glucose 102 Estimat Average Glucose 111 Hemoglobin A1c % 5.5 Calcium 9.5 Total Bilirubin 0.6 AST 38 H ALT 28 Alkaline Phosphatase 67 Total Protein 7.3 Albumin 4.2 Triglycerides 163 H Cholesterol 112 LDL Cholesterol, Calc 45 HDL Cholesterol 35 L 07/08/24 07/09/24 17:39 07:52 Sodium Potassium Chloride Carbon Dioxide Anion Gap BUN Creatinine Estim Creat Clear Calc Estimated GFR POC Glucose 100 120 H Random Glucose Estimat Average Glucose Hemoglobin A1c % Calcium Total Bilirubin AST ALT Alkaline Phosphatase Total Protein Albumin Triglycerides Cholesterol LDL Cholesterol, Calc HDL Cholesterol Medications Medications Current Medications Acetaminophen (Acetaminophen 325 Mg Tablet) 650 mg PO Q6H PRN PRN Reason: Headache/Pain, Scale 1-10 Al Hydroxide/Mg Hydroxide (Magnesium Hydrox/Alum Hydrox 30 Ml Oral.Susp) 30 ml PO Q6H PRN PRN Reason: Heartburn/Nausea Atorvastatin Calcium (Atorvastatin Calcium 20 Mg Tablet) 20 mg PO BEDTIME RICKEY Last Admin: 07/08/24 20:29 Dose: 20 mg Hydroxyzine HCl (Hydroxyzine Hcl 25 Mg Tablet) 25 mg PO Q6H PRN PRN Reason: mild anxiety Last Admin: 07/08/24 20:31 Dose: 25 mg Losartan Potassium (Losartan Potassium 25 Mg Tablet) 25 mg PO BEDTIME RICKEY; Protocol Last Admin: 07/08/24 20:30 Dose: 25 mg Magnesium Hydroxide (Milk Of Magnesia 30 Ml Oral.Susp) 30 ml PO DAILY PRN PRN Reason: Constipation Nicotine (Nicotine 21 Mg Patch.Td24) 21 mg TRANSDERMA DAILY PRN PRN Reason: smoking cessation Nicotine Polacrilex (Nicotine Polacrilex 2 Mg Gum) 4 mg BUCCAL Q2H PRN PRN Reason: Nicotine Cravings Non-Formulary Medication (Dulaglutide [Trulicity]) 1.5 mg SUBCUT Mo RICKEY Trazodone HCl (Trazodone Hcl 50 Mg Tablet) 50 mg PO BEDTIME MRX1 PRN PRN Reason: Insomnia Last Admin: 07/08/24 20:29 Dose: 50 mg Allergies Allergies Allergy/AdvReac Type Severity Reaction Status Date / Time No Known Allergies Allergy Verified 07/06/24 20:58 Assessment & Plan Assessment & Plan (1) Adjustment reaction with mixed disturbance of emotions and conduct: Status: Acute Code(s): F43.25 - Adjustment disorder with mixed disturbance of emotions and conduct Plan Admit, CV, 15 minute checks Collateral Contact Pt declines medications Encourage milieu participation Consult to pt's housing program Diagnostics as needed Discharge planning 07/09: Continue to encourage pt to work in milieu. Reason for continued inpatient stay Substantial Risk for: rapid decompensation Time Spent With Patient Time: Total time managing care of this patient today ____ minutes.
[2024-07-09 11:55] LABS: Glucose Fasting 111 mg/dL (60-99)
[2024-07-09 17:16] LABS: Glucose, Whole Blood 99 mg/dL (60-115)
[2024-07-09 20:00] VITALS: BP 133/86; PULSE 87; RESP 16; TEMP 36.7; O2SAT 97
[2024-07-09 20:36] VITALS: BP 108/73
[2024-07-09] MEDS: traZODone HCL 50 MG TABLET PO (20:36)
[2024-07-09] MEDS: hydrOXYzine HCL 25 MG TABLET PO (20:36)
[2024-07-09] MEDS: Losartan Potassium 25 MG TABLET PO (20:36)
[2024-07-09] MEDS: Atorvastatin Calcium 20 MG TABLET PO (20:37)
--- NOTE | 2024-07-09 20:42 | PC.NURSE ---
late entry 0950 Piero was witnessed to fall in his room first against his shelf and then to the floor. No headstrike, LOC and he denies any pain or injury. He reports, I tripped on my own foot . Vitals checked HR 95 BP 116/60 Sat 95%. Jennifer Gaines SCENE AND LIGHTING DESIGN LECTURER aware, nursing food production supervisor informed. No new orders taken.
[2024-07-10 07:50] LABS: Glucose, Whole Blood 160 mg/dL (60-115)
[2024-07-10 08:00] VITALS: BP 127/78; PULSE 80; TEMP 36.3; O2SAT 96
[2024-07-10 12:19] LABS: Glucose, Whole Blood 115 mg/dL (60-115)
--- NOTE | 2024-07-10 16:37 | P.PNPSI_ITS ---
Subjective Subjective Date of Service: 07/10/24 Reason For Visit: depressed SI Subjective Notes: Conditional Voluntary Healthcare Proxy: No Guardianship: No Medical Problems Affecting Mental Status: No Interim History: Per team, pt not participating in treatment. Pt wanting team to find him and family housing. Reviewed a list of resources for pt to call over the day/weekend. Will plan discharge for 07/14. Pt is angry, threatening at times. We set some boundaries in our meeting today. He discussed that he is not eligible for [place] [facility]'s Benefits Medication Compliance: No Side effects from medications: No Attending Groups: Intermittent Review of Systems Acute medical concerns: No Review of Systems Review of Systems Denies Mental Status Exam Mental Status Exam Patient Appearance: Fatigued Patient Orientation: Person, Place, Time and Situation Level of Consciousness: Alert Patient Behavior: Talkative, Aggressive, Anxious, Fearful, Resistive to Care, Fatigued, Distractible and Good Eye Contact Mood Description: Depressed and Angry Affect Description: Flat Patient Cognition Impaired: No Ability to Follow Directions: Good Speech Pattern: Spontaneous Speech Memory Description: Intact Hallucinations: None (hx of perceptual alterations of family members who have passed) Delusions: Not Present Thought Process: Distracted and Rumination Thought Content: positive for Obsessional Thoughts, positive for Circumstantial, positive for Perseveration, positive for Suicidal Ideation (denies today) and positive for Homicidal Ideation Depressive Symptoms: Increased Anxiety, Increased Irritability, Hopelessness, Thoughts of /Suicide (denies today), Low Self Esteem and Difficulty Concentrating Abnormal Motor Activity Signs and Symptoms: Agitation and Restlessness Judgement: Good Diagnostics Vital Signs (24Hr): Vital Signs - 24 hr 07/09/24 20:00 07/09/24 20:36 07/10/24 08:00 Temperature 98.0 F 97.3 F Pulse Rate 87 80 Respiratory Rate 16 Blood Pressure 133/86 108/73 127/78 Pulse Oximetry 97 96 Oxygen Delivery Method Room Air Room Air BMI result Body Mass Index 31.9 Labs 07/06/24 21:43 07/07/24 12:58 Labs: Laboratory Results - last 48 hr 07/07/24 07/08/24 07/09/24 07:59 17:39 07:52 Hold Purple Top POC Glucose 125 H 100 120 H Fasting Glucose 07/09/24 07/09/24 07/09/24 11:28 11:34 17:12 Hold Purple Top SEE NOTE POC Glucose 99 Fasting Glucose 111 H 07/10/24 07/10/24 07:46 12:15 Hold Purple Top POC Glucose 160 H 115 Fasting Glucose Medications Medications Current Medications Acetaminophen (Acetaminophen 325 Mg Tablet) 650 mg PO Q6H PRN PRN Reason: Headache/Pain, Scale 1-10 Al Hydroxide/Mg Hydroxide (Magnesium Hydrox/Alum Hydrox 30 Ml Oral.Susp) 30 ml PO Q6H PRN PRN Reason: Heartburn/Nausea Atorvastatin Calcium (Atorvastatin Calcium 20 Mg Tablet) 20 mg PO BEDTIME RICKEY Last Admin: 07/09/24 20:37 Dose: 20 mg Hydroxyzine HCl (Hydroxyzine Hcl 25 Mg Tablet) 25 mg PO Q6H PRN PRN Reason: mild anxiety Last Admin: 07/09/24 20:36 Dose: 25 mg Losartan Potassium (Losartan Potassium 25 Mg Tablet) 25 mg PO BEDTIME RICKEY; Protocol Last Admin: 07/09/24 20:36 Dose: 25 mg Magnesium Hydroxide (Milk Of Magnesia 30 Ml Oral.Susp) 30 ml PO DAILY PRN PRN Reason: Constipation Nicotine (Nicotine 21 Mg Patch.Td24) 21 mg TRANSDERMA DAILY PRN PRN Reason: smoking cessation Nicotine Polacrilex (Nicotine Polacrilex 2 Mg Gum) 4 mg BUCCAL Q2H PRN PRN Reason: Nicotine Cravings Pt Own (Dulaglutide [Trulicity] 1.5 Mg/0 .5 Ml Pen Injector) 1.5 mg SUBCUT Mo RICKEY Last Admin: 07/10/24 12:54 Dose: Not Given Trazodone HCl (Trazodone Hcl 50 Mg Tablet) 50 mg PO BEDTIME MRX1 PRN PRN Reason: Insomnia Last Admin: 07/09/24 20:36 Dose: 50 mg Allergies Allergies Allergy/AdvReac Type Severity Reaction Status Date / Time No Known Allergies Allergy Verified 07/06/24 20:58 Assessment & Plan Assessment & Plan (1) Adjustment reaction with mixed disturbance of emotions and conduct: Status: Acute Code(s): F43.25 - Adjustment disorder with mixed disturbance of emotions and conduct Plan Admit, CV, 15 minute checks Collateral Contact Pt declines medications Encourage milieu participation Consult to pt's housing program Diagnostics as needed Discharge planning 07/09: Continue to encourage pt to work in milieu. 07/10: Pt given a list of resources for housing to call today and over the weekend. DC 07/14 planned. Reason for continued inpatient stay Substantial Risk for: rapid decompensation Time Spent With Patient Time: Total time managing care of this patient today ____ minutes.
[2024-07-10 19:37] VITALS: BP 99/60; PULSE 94; TEMP 36.9; O2SAT 93
[2024-07-10 20:37] LABS: Glucose, Whole Blood 119 mg/dL (60-115)
[2024-07-10] MEDS: Atorvastatin Calcium 20 MG TABLET PO (20:53)
[2024-07-10] MEDS: traZODone HCL 50 MG TABLET PO (20:53)
[2024-07-10] MEDS: Losartan Potassium 25 MG TABLET PO (20:53)
[2024-07-10] MEDS: hydrOXYzine HCL 25 MG TABLET PO (20:53)
[2024-07-11 08:00] VITALS: BP 111/67; PULSE 80; RESP 16; TEMP 36.6; O2SAT 98
[2024-07-11 08:00] LABS: Glucose, Whole Blood 124 mg/dL (60-115)
--- NOTE | 2024-07-11 11:01 | HO.PSYCHPN ---
Subjective Subjective Date of Service: 07/11/24 Reason For Visit: depressed SI Subjective Notes: Conditional Voluntary Interim History: Patient was seen and discussed in rounds today. Records and plans were reviewed. He continues to be stable, blunted affect. No AVH/SI. Concerned and preoccupied about his living situations and options. No threatening behaviors. Eating and sleeping adequately. No changes were made today Review of Systems Review of Systems Yes all other systems are reviewed and are negative Mental Status Exam Mental Status Exam Narrative: In today's visit he is alert, oriented and pleasant. Normal speech. Minimal eye contact. Affect is appropriate and blunted. No signs of psychosis. No AVH. Cognitively is grossly intact. Able to move all limbs. No gait abnormalities. Judgment is intact Diagnostics Vital Signs (24Hr): Vital Signs - 24 hr 07/10/24 19:37 07/11/24 08:00 Temperature 98.4 F 98 F Pulse Rate 94 80 Respiratory Rate 16 Blood Pressure 99/60 111/67 Pulse Oximetry 93 98 Oxygen Delivery Method Room Air Room Air BMI result Body Mass Index 31.9 Labs 07/06/24 21:43 07/07/24 12:58 Labs: Laboratory Results - last 48 hr 07/09/24 07/09/24 07/09/24 11:28 11:34 17:12 Hold Purple Top SEE NOTE POC Glucose 99 Fasting Glucose 111 H 07/10/24 07/10/24 07/10/24 07:46 12:15 20:29 Hold Purple Top POC Glucose 160 H 115 119 H Fasting Glucose 07/11/24 07:56 Hold Purple Top POC Glucose 124 H Fasting Glucose Medications Medications Current Medications Acetaminophen (Acetaminophen 325 Mg Tablet) 650 mg PO Q6H PRN PRN Reason: Headache/Pain, Scale 1-10 Al Hydroxide/Mg Hydroxide (Magnesium Hydrox/Alum Hydrox 30 Ml Oral.Susp) 30 ml PO Q6H PRN PRN Reason: Heartburn/Nausea Atorvastatin Calcium (Atorvastatin Calcium 20 Mg Tablet) 20 mg PO BEDTIME RICKEY Last Admin: 07/10/24 20:53 Dose: 20 mg Hydroxyzine HCl (Hydroxyzine Hcl 25 Mg Tablet) 25 mg PO Q6H PRN PRN Reason: mild anxiety Last Admin: 07/10/24 20:53 Dose: 25 mg Losartan Potassium (Losartan Potassium 25 Mg Tablet) 25 mg PO BEDTIME RICKEY; Protocol Last Admin: 07/10/24 20:53 Dose: 25 mg Magnesium Hydroxide (Milk Of Magnesia 30 Ml Oral.Susp) 30 ml PO DAILY PRN PRN Reason: Constipation Nicotine (Nicotine 21 Mg Patch.Td24) 21 mg TRANSDERMA DAILY PRN PRN Reason: smoking cessation Nicotine Polacrilex (Nicotine Polacrilex 2 Mg Gum) 4 mg BUCCAL Q2H PRN PRN Reason: Nicotine Cravings Pt Own (Dulaglutide [Trulicity] 1.5 Mg/0 .5 Ml Pen Injector) 1.5 mg SUBCUT Mo RICKEY Last Admin: 07/10/24 12:54 Dose: Not Given Trazodone HCl (Trazodone Hcl 50 Mg Tablet) 50 mg PO BEDTIME MRX1 PRN PRN Reason: Insomnia Last Admin: 07/10/24 20:53 Dose: 50 mg Allergies Allergies Allergy/AdvReac Type Severity Reaction Status Date / Time No Known Allergies Allergy Verified 07/06/24 20:58 Assessment & Plan Assessment & Plan (1) Adjustment reaction with mixed disturbance of emotions and conduct: Status: Acute Code(s): F43.25 - Adjustment disorder with mixed disturbance of emotions and conduct Plan Admit, CV, 15 minute checks Collateral Contact Pt declines medications Encourage milieu participation Consult to pt's housing program Diagnostics as needed Discharge planning 07/09: Continue to encourage pt to work in milieu. 07/10: Pt given a list of resources for housing to call today and over the weekend. DC 07/14 planned. Reason for continued inpatient stay Substantial Risk for: med/psych decompensation Time Spent With Patient Time: Total time managing care of this patient today ____ minutes.
[2024-07-11 11:45] LABS: Glucose, Whole Blood 131 mg/dL (60-115)
[2024-07-11 17:18] LABS: Glucose, Whole Blood 130 mg/dL (60-115)
[2024-07-11 19:33] VITALS: BP 94/63; PULSE 96; TEMP 36.7; O2SAT 97
[2024-07-11 19:55] LABS: Glucose, Whole Blood 141 mg/dL (60-115)
[2024-07-11] MEDS: traZODone HCL 50 MG TABLET PO (20:25)
[2024-07-11] MEDS: hydrOXYzine HCL 25 MG TABLET PO (20:25)
[2024-07-11] MEDS: Losartan Potassium 25 MG TABLET PO (20:25)
[2024-07-11] MEDS: Atorvastatin Calcium 20 MG TABLET PO (20:25)
[2024-07-12] MEDS: traZODone HCL 50 MG TABLET PO ×2 (01:26→20:33)
[2024-07-12] MEDS: hydrOXYzine HCL 25 MG TABLET PO ×2 (01:26→20:33)
[2024-07-12 07:47] LABS: Glucose, Whole Blood 154 mg/dL (60-115)
[2024-07-12 08:42] VITALS: BP 122/76; PULSE 90; TEMP 36.3; O2SAT 97
[2024-07-12] MEDS: Acetaminophen 325 MG TABLET 650 MG PO ×3 (09:34→21:57)
--- NOTE | 2024-07-12 09:51 | PC.NURSE ---
Approximately 0835 pt walked to nursing station and reported to consumer loan underwriter I just fell in my room. Pt explained that he got out of bed, stood up, and felt his feet give out . Pt stated I've been saying this everyday and no one will listen. I keep falling because of neuropathy. No one will do anything about it. Pt denied hitting his head, and stated No I landed on my butt. Pt alert and oriented. Pt denied discomfort. Pt was directed to sit down, and VS were obtained. VSS. Pt then stated he wanted to go into the kitchen to eat his breakfast. Pt took a seat in the kitchen and breakfast tray was brought to patient. Dr. Bernal was notified of unwitnessed fall. After breakfast pt c/o discomfort to right buttocks. Pt ambulated to his room with nurse for requested physical inspection of area. No changes in skin integrity noted to right buttocks/hip area. Pt requested and received Tylenol for discomfort. Pt declined offer for use of walker. Dr. Bernal made aware. Pt was educated on new order for Gabapentin to help with neuropathic sensations, and pt placed on 5 minute checks for increased safety. Nursing supervisor nuclear medicine updated on pt fall.
--- NOTE | 2024-07-12 10:08 | HO.PSYCHPN ---
Subjective Subjective Date of Service: 07/12/24 Reason For Visit: depressed SI Subjective Notes: Conditional Voluntary Interim History: Patient was seen and discussed in rounds today. Records and plans were reviewed. He had a fall on his backside today with no injuries. He does not want a walker and we do not allow wheelchairs on the unit. He also continues to complain of neurological symptoms in his lower extremities probably secondary to his diabetes. I ordered gabapentin 300 mg q.h.s.. Side effects reviewed. He was also changed to 5 minute safety checks. He is happy with the new measures Review of Systems Review of Systems Yes all other systems are reviewed and are negative Mental Status Exam Mental Status Exam Narrative: In today's visit he is alert, oriented and pleasant. Normal speech. Minimal eye contact. Affect is appropriate and blunted. No signs of psychosis. No AVH. Cognitively is grossly intact. No SI. Able to move all limbs. No gait abnormalities. Judgment is intact Diagnostics Vital Signs (24Hr): Vital Signs - 24 hr 07/11/24 19:33 07/12/24 08:42 Temperature 98.1 F 97.3 F Pulse Rate 96 90 Blood Pressure 94/63 122/76 Pulse Oximetry 97 97 Oxygen Delivery Method Room Air Room Air BMI result Body Mass Index 31.9 Labs 07/06/24 21:43 07/07/24 12:58 Labs: Laboratory Results - last 48 hr 07/10/24 07/10/24 07/11/24 12:15 20:29 07:56 POC Glucose 115 119 H 124 H 07/11/24 07/11/24 07/11/24 11:35 17:11 19:51 POC Glucose 131 H 130 H 141 H 07/12/24 07:43 POC Glucose 154 H Medications Medications Current Medications Acetaminophen (Acetaminophen 325 Mg Tablet) 650 mg PO Q6H PRN PRN Reason: Headache/Pain, Scale 1-10 Last Admin: 07/12/24 09:34 Dose: 650 mg Al Hydroxide/Mg Hydroxide (Magnesium Hydrox/Alum Hydrox 30 Ml Oral.Susp) 30 ml PO Q6H PRN PRN Reason: Heartburn/Nausea Atorvastatin Calcium (Atorvastatin Calcium 20 Mg Tablet) 20 mg PO BEDTIME RICKEY Last Admin: 07/11/24 20:25 Dose: 20 mg Gabapentin (Gabapentin 300 Mg Capsule) 300 mg PO BEDTIME RICKEY Hydroxyzine HCl (Hydroxyzine Hcl 25 Mg Tablet) 25 mg PO Q6H PRN PRN Reason: mild anxiety Last Admin: 07/12/24 01:26 Dose: 25 mg Losartan Potassium (Losartan Potassium 25 Mg Tablet) 25 mg PO BEDTIME RICKEY; Protocol Last Admin: 07/11/24 20:25 Dose: 25 mg Magnesium Hydroxide (Milk Of Magnesia 30 Ml Oral.Susp) 30 ml PO DAILY PRN PRN Reason: Constipation Nicotine (Nicotine 21 Mg Patch.Td24) 21 mg TRANSDERMA DAILY PRN PRN Reason: smoking cessation Nicotine Polacrilex (Nicotine Polacrilex 2 Mg Gum) 4 mg BUCCAL Q2H PRN PRN Reason: Nicotine Cravings Pt Own (Dulaglutide [Trulicity] 1.5 Mg/0 .5 Ml Pen Injector) 1.5 mg SUBCUT Mo RICKEY Last Admin: 07/10/24 12:54 Dose: Not Given Trazodone HCl (Trazodone Hcl 50 Mg Tablet) 50 mg PO BEDTIME MRX1 PRN PRN Reason: Insomnia Last Admin: 07/12/24 01:26 Dose: 50 mg Allergies Allergies Allergy/AdvReac Type Severity Reaction Status Date / Time No Known Allergies Allergy Verified 07/06/24 20:58 Assessment & Plan Assessment & Plan (1) Adjustment reaction with mixed disturbance of emotions and conduct: Status: Acute Code(s): F43.25 - Adjustment disorder with mixed disturbance of emotions and conduct Plan Admit, CV, 15 minute checks Collateral Contact Pt declines medications Encourage milieu participation Consult to pt's housing program Diagnostics as needed Discharge planning 07/09: Continue to encourage pt to work in milieu. 07/10: Pt given a list of resources for housing to call today and over the weekend. 07/12: Continue current plans and regimen. Added gabapentin 300 mg q.h.s.. 5 minute safety checks DC 07/14 planned. Reason for continued inpatient stay Substantial Risk for: med/psych decompensation Time Spent With Patient Time: Total time managing care of this patient today ____ minutes.
[2024-07-12 10:18] VITALS: BP 122/76; PULSE 90; RESP 18; TEMP 36.3; O2SAT 97
[2024-07-12 16:30] LABS: Glucose, Whole Blood 115 mg/dL (60-115)
[2024-07-12 20:00] VITALS: RESP 18
[2024-07-12] MEDS: Losartan Potassium 25 MG TABLET PO (20:33)
[2024-07-12] MEDS: Gabapentin 300 MG CAPSULE PO (20:33)
[2024-07-12] MEDS: Atorvastatin Calcium 20 MG TABLET PO (20:33)
[2024-07-13 07:48] LABS: Glucose, Whole Blood 120 mg/dL (60-115)
[2024-07-13 08:00] VITALS: BP 134/80; PULSE 81; RESP 18; TEMP 36.4; O2SAT 97
[2024-07-13] MEDS: PT OWN (Dulaglutide [Trulicity] 1.5 mg/0.5 mL pen injector) 1.5 EACH SUBCUT (10:22)
[2024-07-13] MEDS: Acetaminophen 325 MG TABLET 650 MG PO ×2 (11:37→19:53)
[2024-07-13 12:20] LABS: Glucose, Whole Blood 140 mg/dL (60-115)
--- NOTE | 2024-07-13 14:12 | HO.PSYCHPN ---
Subjective Subjective Date of Service: 07/13/24 Reason For Visit: depressed SI Interim History: Met with patient; discussed with team; reviewed chart Patient reports that his mood is good and says my mind set is better than when I came in. Patient goes on to talk about how when he came in, he initially he wanted to hurt and kill people and that he was able to do it because he used to be a part of the [employer]; he says now I choose not to do it. Patient shared about some of the circumstances that led to this admission. Mental Status Exam Mental Status Exam Narrative: Pt is alert and oriented; behavior is in control, cooperative, friendly, overly talkative, calm; patient is not in distress; dressed in casual attire, unkempt; mood is described as good and affect congruent; eye contact appropriate; Speech is exceedingly verbose and constant, but would not say pressured; normal rate, volume and prosody; no psychomotor agitation/retardation present; thought process is circumstantial but goal directed; Thought content on treatment, recent events; otherwise pertinent to relevant topics and without any delusional content, paranoid ideations or grandiosity; denies any SI/HI. Denies AVH and there is no evidence of perceptual disturbance. Patients insight and judgment likely at baseline and adequate Diagnostics Vital Signs (24Hr): Vital Signs - 24 hr 07/12/24 20:00 07/13/24 08:00 Temperature 97.5 F Pulse Rate 81 Respiratory Rate 18 18 Blood Pressure 134/80 Pulse Oximetry 97 Oxygen Delivery Method Room Air BMI result Body Mass Index 31.9 Labs 07/06/24 21:43 07/07/24 12:58 Labs: Laboratory Results - last 48 hr 07/11/24 07/11/24 07/12/24 17:11 19:51 07:43 POC Glucose 130 H 141 H 154 H 07/12/24 07/13/24 07/13/24 16:25 07:43 12:07 POC Glucose 115 120 H 140 H Medications Medications Current Medications Acetaminophen (Acetaminophen 325 Mg Tablet) 650 mg PO Q6H PRN PRN Reason: Headache/Pain, Scale 1-10 Last Admin: 07/13/24 11:37 Dose: 650 mg Al Hydroxide/Mg Hydroxide (Magnesium Hydrox/Alum Hydrox 30 Ml Oral.Susp) 30 ml PO Q6H PRN PRN Reason: Heartburn/Nausea Atorvastatin Calcium (Atorvastatin Calcium 20 Mg Tablet) 20 mg PO BEDTIME RICKEY Last Admin: 07/12/24 20:33 Dose: 20 mg Gabapentin (Gabapentin 300 Mg Capsule) 300 mg PO BEDTIME RICKEY Last Admin: 07/12/24 20:33 Dose: 300 mg Hydroxyzine HCl (Hydroxyzine Hcl 25 Mg Tablet) 25 mg PO Q6H PRN PRN Reason: mild anxiety Last Admin: 07/12/24 20:33 Dose: 25 mg Losartan Potassium (Losartan Potassium 25 Mg Tablet) 25 mg PO BEDTIME RICKEY; Protocol Last Admin: 07/12/24 20:33 Dose: 25 mg Magnesium Hydroxide (Milk Of Magnesia 30 Ml Oral.Susp) 30 ml PO DAILY PRN PRN Reason: Constipation Nicotine (Nicotine 21 Mg Patch.Td24) 21 mg TRANSDERMA DAILY PRN PRN Reason: smoking cessation Nicotine Polacrilex (Nicotine Polacrilex 2 Mg Gum) 4 mg BUCCAL Q2H PRN PRN Reason: Nicotine Cravings Pt Own (Dulaglutide [Trulicity] 1.5 Mg/0 .5 Ml Pen Injector) 1.5 mg SUBCUT Mo RICKEY Last Admin: 07/13/24 10:22 Dose: 1.5 mg Trazodone HCl (Trazodone Hcl 50 Mg Tablet) 50 mg PO BEDTIME MRX1 PRN PRN Reason: Insomnia Last Admin: 07/12/24 20:33 Dose: 50 mg Allergies Allergies Allergy/AdvReac Type Severity Reaction Status Date / Time No Known Allergies Allergy Verified 07/06/24 20:58 Assessment & Plan Assessment & Plan (1) Adjustment reaction with mixed disturbance of emotions and conduct: Status: Acute Code(s): F43.25 - Adjustment disorder with mixed disturbance of emotions and conduct Plan Admit, CV, 15 minute checks Collateral Contact Pt declines medications Encourage milieu participation Consult to pt's housing program Diagnostics as needed Discharge planning 07/09: Continue to encourage pt to work in milieu. 07/10: Pt given a list of resources for housing to call today and over the weekend. 07/12: Continue current plans and regimen. Added gabapentin 300 mg q.h.s.. 5 minute safety checks; DC 07/14 planned? 07/13 Patient reports that his mood is good and says my mind set is better than when I came in. Patient goes on to talk about how when he came in, he initially he wanted to hurt and kill people and that he was able to do it because he used to be a part of the [employer]; he says now I choose not to do it. Patient shared about some of the circumstances that led to this admission. Patient educated on: diagnosis and medication risk/benefits Informed Consent: understands Reason for continued inpatient stay Substantial Risk for: stable for discharge Time Spent With Patient Time: Total time managing care of this patient today ____ minutes.
[2024-07-13 17:15] LABS: Glucose, Whole Blood 127 mg/dL (60-115)
[2024-07-13 18:01] LABS: Influenza A PCR NEGATIVE (Negative); Influenza B PCR NEGATIVE (Negative); Resp Syncy Virus RNA Qual PCR NEGATIVE (Negative); SARS COV2 PCR INHOUSE NEGATIVE (Negative)
[2024-07-13 20:00] VITALS: BP 110/65; PULSE 94; RESP 18; TEMP 36.4; O2SAT 98
[2024-07-13] MEDS: Atorvastatin Calcium 20 MG TABLET PO (21:23)
[2024-07-13] MEDS: Losartan Potassium 25 MG TABLET PO (21:23)
[2024-07-13] MEDS: Gabapentin 300 MG CAPSULE PO (21:23)
[2024-07-13 21:30] LABS: Glucose, Whole Blood 134 mg/dL (60-115)
[2024-07-14 08:00] VITALS: BP 125/65; PULSE 80; RESP 16; TEMP 36.7; O2SAT 98
[2024-07-14 08:10] LABS: Glucose, Whole Blood 131 mg/dL (60-115)
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
== END 2024-07-14 11:35 | disposition home or self-care (01) | DRG 882 ==
LOC: HO.ED 07-07 04:33 → HO.PM5 07-07 12:01
PROVIDERS: Admitting Provider Psychiatry & Neurology Psychiatry; Emergency Provider Internal Medicine; PCP Registered Nurse; Visit Provider Clinical Nurse Specialist Psychiatric/Mental Health, Adult
DX: F43.25 Adjustment disorder with mixed disturbance of emotions and conduct (principal); R45.851 Suicidal ideations; Z59.02 Unsheltered homelessness; W19.XXXA Unspecified fall, initial encounter; R45.850 Homicidal ideations; Z20.822 Contact with and (suspected) exposure to COVID-19; Z79.85 Long-term (current) use of injectable non-insulin antidiabetic drugs; Z79.899 Other long term (current) drug therapy
CPT/HCPCS: 0241U; 36415; 70450; 80053; 80061; 80307; 81001; 82947; 83036; 85025; 93005; 99285; S9485

== ENCOUNTER → 2024-07-06 23:21 | Outpatient (BNV) | payer MEDICARE, SELFPAY | PROVIDERS: Emergency Provider Internal Medicine; PCP Registered Nurse; Visit Provider Radiology Diagnostic Radiology | DX: F68.8 Other specified disorders of adult personality and behavior (principal) | CPT/HCPCS: 70450 ==

== ENCOUNTER → 2024-07-07 08:03 | Outpatient (BNV) | payer MEDICARE, SELFPAY | PROVIDERS: Emergency Provider Internal Medicine; PCP Registered Nurse; Visit Provider Internal Medicine Cardiovascular Disease | DX: Z13.6 Encounter for screening for cardiovascular disorders (principal) | CPT/HCPCS: 93010 ==

== ENCOUNTER → 2024-07-07 11:37 | Outpatient (BNV) | payer OTHER, SELFPAY | PROVIDERS: Admitting Provider Psychiatry & Neurology Psychiatry; Emergency Provider Internal Medicine; PCP Registered Nurse; Visit Provider Clinical Nurse Specialist Psychiatric/Mental Health, Adult | DX: F43.25 Adjustment disorder with mixed disturbance of emotions and conduct (principal) | CPT/HCPCS: 90792; 99231; 99232 ==

== ENCOUNTER 2024-07-15 07:54 | Emergency (ER) | payer MEDICARE, SELFPAY ==
--- NOTE | ~2024-07-15 | XR_ITS ---
EXAMINATION: XR HIP, RIGHT CLINICAL INFORMATION: fall, hx hip replacement COMPARISON: None available. TECHNIQUE: Two views of the right hip. FINDINGS: No fracture, dislocation, or suspicious bone lesion. Total right hip arthroplasty in place with femoral and acetabular components intact, well seated, in anatomic alignment. No periprosthetic lucency, subsidence, or evidence of abnormal polyethylene wear. No significant heterotopic bone formation. Severe, near end-stage arthropathy left hip joint. Moderate degenerative arthropathy bilateral SI joints. Sacrum appears intact. Vascular calcifications in the soft tissues. XR/XR hip RT w PEL1V IMPRESSION: 1. Total right hip arthroplasty without complication evident. No definite fractures seen. 2. 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 Electronically signed by: Julius Narvaez MD 07/15/2024 10:34 AM EDT
--- NOTE | ~2024-07-15 | XR_ITS ---
EXAMINATION: XR SHOULDER, RIGHT CLINICAL INFORMATION: fall, tenderness to glenohumeral joint COMPARISON: None available. TECHNIQUE: AP external rotation, Grashey, scapular Y, and axillary views of the right shoulder. FINDINGS: Normal bone mineralization. No fracture, dislocation, or suspicious bone lesion. Normal alignment. The glenohumeral joint is normal. The AC joint demonstrates mild arthritic spurring. There is a neutral lateral acromion. No undersurface spurring. The subacromial space is preserved. Remainder of the soft tissue and bony structures appear normal. XR/XR shoulder RT min 2V IMPRESSION: No acute bony abnormalities. Mild AC joint spurring. Electronically signed by: Julius Narvaez MD 07/15/2024 10:32 AM EDT
[2024-07-15 07:57] VITALS: BP 144/70; PULSE 102; O2SAT 97
[2024-07-15 08:02] VITALS: BP 102/45; PULSE 95; RESP 18; TEMP 36.7; O2SAT 94
[2024-07-15 08:18] VITALS: BMI 31.7
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
--- NOTE | 2024-07-15 08:38 | PC.NURSE ---
Assumed care of patient at 0830, patient moved from main ED to pod. Pt is calm and cooperative, sitting in common area eating and watching TV
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
--- OUTSIDE RECORDS SUMMARY | 2024-07-15 09:37 | XMS_ITS | Encounter Summary ---
Author Organization [employer] Address [address] [facility] [address] [place] [address] Care Team Providers Care Privacy Director Name Role Phone [facility] Primary Care Provider [phone] Reason for Visit * Reason Onset Date Comments Med Refill 09/19/2023 Encounter Details Date Type Department Care Team ([facility] st Contact Info) Description 09/19/2023 Telephone [facility] [address] [place], [place] [phone] [facility] [address] [place] [address] Med Refill Social History Tobacco Use Types [...] Telephone Encounter - Opal Rai LPN - 09/19/2023 9:49 AM EDT Per previous TC on 09/03/23 medication discontinued. * Telephone Encounter - Parisa Ocampo - 09/19/2023 9:44 AM EDT TC from [facility] medication refill. Medications needing refill : insulin aspart (NovoLOG FLEXPEN) 100 UNIT/ML pen To be sent to: [facility] documented in this encounter Plan of Treatment Upcoming Encounters Date Type Department Care Team (Late st Contact Info) Description 07/21/2024 1:15 PM EDT Office Visit [facility] [address] [place] [address] Henna Carey MD [address] [place], [place] [phone] documented as of this encounter Visit Diagnoses Not on filedocumented in this encounter Additional Health Concerns Assessment Noted Time PHQ-9 Depression Total Score: 0 09/06/19 24 12:53 PM EDT documented as of this encounter Care Teams Privacy Director Relationship Specialty Start Date End Date Courtney Remy FNP [address] [place] [address] PCP - General Family Medicine 09/09/23 documented as of this encounter
--- OUTSIDE RECORDS SUMMARY | 2024-07-15 09:37 | XMS_ITS | Encounter Summary ---
Author Organization [employer] Address [address] [facility] [address] [place] [address] Care Team Providers Care Cloth Shrinking Supervisor Name Role Phone [facility] Primary Care Provider [phone] Reason for Visit * Reason Comments Transition Of Care (Tcm) Scheduled Direc t Line Encounter Details Date Type Department Care Team ([facility] st Contact Info) Description 07/14/2024 Patient Outreach [facility]INE [address] [place], [place] [phone] [facility] [address] [place] [address] Transition Of Care (Tcm) (Scheduled Direct Line) Social History Tobacco Use Types Packs/Day Years [...] as of this encounter Miscellaneous Notes * Significant Event - Catherine Suazo - 07/14/2024 11:13 AM EDT 07/14/24 1112 Hospital Discharges and Admission for [facility] Type of Visit Hospital Admission Date of Admission/Visit 07/07/24 Date of Discharge 07/14/24 [facility] Diagnosis Depression and SI Disposition Discharged Home Follow-Up Actions Follow-Up Needed Provider appointment Follow-Up Outcome Spoke to Caregiver;Booked Appointment Initial Contact Date 07/14/24 Received incoming call from the Direct Hospital Line. CM Spoke with Bridget from [facility].Patient has been scheduled for an HDF appointment on 07/21/[address] Duarte. CONRAD requested discharge summariesto be faxed to the Care Management Department at [phone]. CC will follow up on discharge summary following patient's discharge. Insurance verified prior to scheduling. documented in this encounter Plan of Treatment Upcoming Encounters Date Type Department Care Team ([facility] st Contact Info) Description 07/21/2024 1:15 PM EDT Office Visit [facility] [address] [place] [address] Henna Carey MD [address] [place] [address] documented as of this encounter Visit Diagnoses Not on filedocumented in this encounter Additional Health Concerns Assessment Noted Time PHQ-9 Depression Total Score: 8 03/11/20 24 9:15 AM EST documented as of this encounter Care Teams Cloth Shrinking Supervisor Relationship Specialty Start Date End Date Courtney Remy FNP [address] [place] [address] PCP - General Family Medicine 09/09/23 documented as of this encounter
--- OUTSIDE RECORDS SUMMARY | 2024-07-15 09:38 | XMS_ITS | Encounter Summary ---
Author Organization [employer] Address [address] [place] [address] Care Team Providers Care Field Logistics Coordinator Name Role Phone [facility] Primary Care Provider [phone] Encounter Details Date Type Department Care Team ([facility] st Contact Info) Description 10/11/2023 Orders Only [facility] [address] [place], [place] [phone] Rebeka Dickey MD [address] [place], [place] [phone] Social History Tobacco Use Types Packs/Day Years [...] Description 07/21/2024 1:15 PM EDT Office Visit [facility] [address] [place] [address] Henna Carey MD [address] [place] [address] documented as of this encounter Visit Diagnoses Not on filedocumented in this encounter Additional Health Concerns Assessment Noted Time PHQ-9 Depression Total Score: 0 09/06/19 24 12:53 PM EDT documented as of this encounter Care Teams Field Logistics Coordinator Relationship Specialty Start Date End Date Courtney Remy FNP [address] [place] [address] PCP - General Family Medicine 09/09/23 documented as of this encounter
--- OUTSIDE RECORDS SUMMARY | 2024-07-15 09:38 | XMS_ITS | Clinical Summary ---
Author Organization [address] [facility] Address [address] [place] [address] Phone Care Team Providers Care Repair Department Manager Name Role Phone Sandrita Courtney Primary Care Provider [phone] Allergies No known active allergies Medications atorvastatin [...] hyperlipidemia 01/07/2024 T2DM (type 2 diabetes mellitus) (CMS/[facility] V24, CM S/[facility] V28) 01/07/2024 Encounters Date Type Department Care Team Description 04/21/2024 1:00 PM EST Office Visit [facility] - [place] [address] [facility] [address] [place] [address] Ponce Lozano DPM Controlled type 2 diabetes with neuropathy (CMS/[facility] V24, CMS/[facility] V28) (Primary Dx); Arthritis of both feet; PVD (peripheral vascular disease) ([facility] V24); Dermatophytosis, nail 04/16/2024 5:16 PM EST - 04/16/2024 9:00 PM EST Emergency [facility] Emergency [address] [place] [phone] Yonny Roman DO Chest pain, unspecified type [...] PM EDT Office Visit Orthopedic Surgery - [place] [address] [phone] Ponce Lozano, TOMMY [address] [address] Health Maintenance Due Date Last Done Comments [...] LAB CHEMISTRY METHOD 04/16/2024 7:04 PM EST [facility] Blood Venous blood specimen / Unknown Venipuncture / Unknown 04/16/2024 6:17 PM EST 04/16/2024 6:20 PM EST Narrative [facility] - 04/16/2024 7:04 PM EST High levels of biotin in samples may falsely decrease hsTroponin values. ??Use caution when interpreting hsTroponin results in patients taking biotin who exhibit renal impairment (eGFR <60) or in patients taking more than 20 mg/day of biotin. Scout Florez MD LAB BLOOD ORDERABLES Elsy l Result [facility] [address] [facility] [place] [address], [place] [phone] * XR Chest 2 Views (04/16/2024 3:49 PM EST) Anatomical Region Laterality Modality Body Radiographic Bethany ging 04/16/2024 4:04 PM EST Impressions 04/16/2024 4:04 PM EST No evidence of active pulmonary disease. [id number] -------- FINAL REPORT -------- Dictated By: Ward Felix Dictated Date: 04/16/2024 16:04 ET Assigned Physician: Ward Felix Reviewed and Electronically Signed By: Ward Felix Signed Date: 04/16/2024 16:04 ET Workstation ID: [id number] Transcribed By: Self Edit Transcribed Date: 04/16/2024 [...] IMPRESSION: No evidence of active pulmonary disease. [id number] -------- FINAL REPORT -------- Dictated By: Ward Felix Dictated Date: 04/16/2024 16:04 ET Assigned Physician: Ward Felix Reviewed and Electronically Signed By: Ward Felix Signed Date: 04/16/2024 16:04 ET Workstation ID: [id number] Transcribed By: Self Edit Transcribed Date: 04/16/2024 16:04 ET us Scout Florez MD IMG XR PROCEDURES Final R esult * (ABNORMAL) CBC auto differential (04/16/2024 3:36 PM EST) [facility] WBC 12.6(H) 4.8 - 10.8 K/mcL [...] LAB HEMETOLOGY METHOD 04/16/2024 4:11 PM EST [facility] Blood Venous blood specimen / Unknown Venipuncture / Unknown 04/16/2024 3:36 PM EST 04/16/2024 4:01 PM EST Scout Florez MD LAB BLOOD ORDERABLES Elsy l Result Performing Organization Address City/[facility]/ZIP Co de Phone Number [facility] [address] [place] [address], [place] [phone] * B-type natriuretic peptide (04/16/2024 3:36 PM EST) [facility] BNP <2 <=100 pcg/mL LAB CHEMISTRY METHOD 04/16/2024 4:47 PM EST [facility] Blood Venous blood specimen / Unknown Venipuncture / Unknown 04/16/2024 3:36 PM EST 04/16/2024 4:01 PM EST Scout Florez MD LAB BLOOD ORDERABLES Elsy l Result Performing Organization Address [facility] Co de Phone Number [facility] [address] [place] [address], [place] [phone] * Magnesium (04/16/2024 3:36 PM EST) [facility] Magnesium 2.4 1.9 - 2.6 mg/dL LAB CHEMISTRY METHOD 04/16/2024 4:37 PM EST [facility] Blood Venous blood specimen / Unknown Venipuncture / Unknown 04/16/2024 3:36 PM EST 04/16/2024 4:01 PM EST Scout Florez MD LAB BLOOD ORDERABLES Elsy l Result Performing Organization Address City/[facility]/ZIP Co de Phone Number [facility] [address] [place] [address], [place] [phone] * (ABNORMAL) Lipase (04/16/2024 3:36 PM EST) [facility] Lipase 79(H) 13 - 75 unit/L LAB CHEMISTRY METHOD 04/16/2024 4:37 PM [facility] Blood Venous blood specimen / Unknown Venipuncture / Unknown 04/16/2024 3:36 PM EST 04/16/2024 4:01 PM EST Scout Florez MD LAB BLOOD ORDERABLES Elsy l Result [facility] [address] [place] [address], [place] [phone] * Comprehensive metabolic panel (04/16/2024 3:36 PM EST) [facility] Sodium 142 133 - 145 mmol/L [...] MD LAB BLOOD ORDERABLES Elsy angelica Result [facility] [address] [place] [address], * ECG 12 lead (04/16/2024 1:09 PM EST) Ventricular Rate ECG 89 BPM GEMUSE Atrial Rate 89 BPM GEMUSE P-R Interval 170 ms GEMUSE QRS Duration 82 ms GEMUSE Q-T Interval 362 ms GEMUSE QTc 440 ms GEMUSE P Wave [place] 50 degrees GEMUSE R [place] -17 degrees GEMUSE T [place] 51 degrees GEMUSE ECG Interpretation Normal sinus rhythm Normal ECG No previous ECGs available Confirmed by Lester HUNG JOHN ([id number]) on 04/16/2024 4:54:03 PM GEMUSE 04/16/2024 1:09 PM EST 04/16/2024 4:54 PM EST Scout Florez MD ECG ORDERABLES Final Res ult GEMUSE * ECG-Annotated (04/16/2024) Provider Onbase ECG ORDERABLES Final Result from Last 3 Months Insurance MEDICARE ADVANTAGE MEDICAID - [place] Care Teams Repair Department Manager Relationship Specialty Start Date End Date [facility] [address] [place] [phone] PCP - General 11/22/23
--- OUTSIDE RECORDS SUMMARY | 2024-07-15 09:38 | XMS_ITS | Encounter Summary ---
Author Organization [employer] Address [address] 7[address] [place] [address] Care Team Providers Care Vocational Rehabilitation Administrator Name Role Phone [facility] Primary Care Provider [phone] Reason for Visit * Reason Onset Date Comments Med Refill 12/02/2023 Encounter Details Date Type Department Care Team ([facility] st Contact Info) Description 12/02/2023 Telephone [facility]INE [address] [place], [place] [phone] [facility] [address] [place] [address] Med Refill Social History Tobacco Use Types [...] LITE) test strip To be sent to: [facility] - [place], [place] - [address] [place] [address] documented in this encounter Plan of Treatment Upcoming Encounters Date Type Department Care Team (Late st Contact Info) Description 07/21/2024 1:15 PM EDT Office Visit [facility] [address] [place] [address] Henna Carey MD [address] [place] [address] documented as of this encounter Visit Diagnoses Not on filedocumented in this encounter Additional Health Concerns Assessment Noted Time PHQ-9 Depression Total Score: 0 11/11/19 11:00 AM EDT documented as of this encounter Care Teams Vocational Rehabilitation Administrator Relationship Specialty Start Date End Date Courtney Remy FNP [address] [place] [address] PCP - General Family Medicine 09/09/23 documented as of this encounter
--- OUTSIDE RECORDS SUMMARY | 2024-07-15 09:38 | XMS_ITS | Clinical Summary ---
Author Organization [employer] Address [address] 7[address] [place] [address] Care Team Providers Care Wort Extractor Name Role Phone Sandrita [facility] Primary Care Provider [phone] Allergies No known active allergies Medications * [...] hyperglycemia, with long-term current use of insulin ([facility]) Use one pad each to prep skin prior to injection as directed 100 each 4 Active TRUEplus Lancets 33G miscIndications: Type 2 diabetes mellitus with hyperglycemia, with long-term current use of insulin ([facility]) USE DIRECTED TO TEST BLOOD SUGAR THREE TIMES DAILY 100 each 11 4 Active Continuous Glucose Thermometer Maker (FreeStyle Curry 2 Munson) deviceIndication s:Type 2 diabetes mellitus with hyperglycemia, with long-term current use of insulin ([facility]) Scan sensor every 8 hours 1 each 4 Active Continuous Glucose Sensor (FreeStyle Curry 2 Sensor) miscIndications: Type 2 diabetes mellitus with hyperglycemia, with long-term current use of insulin ([facility]) Apply 1 sensor every 14 days 2 each 3 4 Active glucose blood (FREESTYLE LITE) test stripIndications :Type 2 diabetes mellitus with hyperglycemia, with long-term current use of insulin ([facility]) USE DIRECTED TO TEST BLOOD SUGAR THREE TIMES DAILY 100 each 1 4 Active atorvastatin (Lipitor) 20 MG tabletIndication s:Type 2 diabetes mellitus with hyperglycemia, with long-term current use of insulin ([facility]) Take 1 tablet (20 mg) by mouth Once per day. 90 tablet 3 4 11/11/19 25 Active OneTouch Delica Lancets 33G miscIndications: Type 2 diabetes mellitus with hyperglycemia, with long-term current use of insulin ([facility]) Use to test blood sugar three times daily 100 each 11 4 Active Blood Glucose Monitoring Suppl (ONE TOUCH ULTRA 2) w/Device kitIndications:T ype 2 diabetes mellitus with hyperglycemia, with long-term current use of insulin ([facility]) Use to test blood sugar three times daily 1 kit 4 Active glucose blood (OneTouch Ultra) test stripIndications :Type 2 diabetes mellitus with hyperglycemia, with long-term current use of insulin ([facility]) Use to test blood sugar three times daily 100 each 4 11/26/19 25 Active dulaglutide (Trulicity) 1.5 MG/0.5ML solution pen-injectorIndi cations:Type 2 diabetes mellitus without complication, without long-term current use of insulin ([facility]) Inject 1.5 mg under the skin 1 [...] complication, without long-term current use of insulin ([facility]) Chew 4 tablets (16 g) if needed [...] routine foot care Eye Exam: Referred to [facility] Statin: Yes ASA: Yes Bar/Arb: Yes Essential hypertension 09/04/2023 Hyperlipidemia 09/04/2023 Encounters * This document contains information received from the source organization and may not represent a complete record from that organization. Date Type Department Care Team Description 07/14/2024 Patient Outreach [address] [address] Courtney Remy FNP Transition Of Care (Tcm) (Scheduled Direct Line) 07/08/[address] [address] Courtney Remy FNP No Show 07/06/2024 Orders Only GENERIC EXTERNAL DATA DEPARTMENT Provider, Generic External Data 06/17/2024 Patient Outreach [address] [address] Courtney Remy FNP Care Coordination (CHW outreach for [place] housing search-referral completed ) 06/17/2024 Telephone [facility] [place] [address] Courtney Remy FNP 06/16/[address] [address] Courtney Remy FNP chart prep 06/08/2024 Patient Outreach [facility] [address] [place] [address] SavoyCourtney FNP Pre-visit Planning ((Unable to reach for PVP screening, LVM)) 04/29/2024 Refill [facility] [address] [place] [address] SavoyCourtney sanford FNP from Last 3 Months Immunizations Name [...] Description 07/21/2024 1:15 PM EDT Office Visit [facility] [address] [place] [address] Henna Carey MD [address] [place] [address] Health Maintenance Due Date Last Done Comments [...] Procedure Name Priority Date/Time Associated Diagnosis Comments CT HEAD WO CONTRAST Routine 07/07/2024 1 2:13 AM EDT DRUG MONITOR, PANEL 1, SCREEN, URINE Routine 07/06/2024 10:01 PM EDT URINALYSIS, COMPLETE Routine 07/06/2024 10:01 PM EDT POCT GLYCATED HEMOGLOBIN, TOTAL Routine 03/11/2024 9:17 AM EST Type 2 diabetes mellitus without complication, without long-term current use of insulin ([facility]) LIPID PANEL, STANDARD Routine 09/06/2023 1:48 PM EDT Type 2 diabetes mellitus with hyperglycemia, with long-term current use of insulin ([facility]) from Last 3 Months or Most Recently Relevant to Health Maintenance Results * CT Head w/o Contrast (07/07/2024 12:13 AM EDT) Anatomical Region Laterality Modality Head, Neck Computed Tomogra phy 07/07/2024 12:1 3 AM EDT Narrative 07/07/2024 12:15 AM EDT ? [facility] ?[address] ?[place] [address] ? CT Scan Report ? Signed ? Patient: Piero Long Janet ?MR#: [id number] ?? [id number] ? : 1960 ?Acct:[id number] ? Age/Sex: 63 / M ?ADM Date: 07/06/24 ? Loc: HO.ED ? Attending Dr: ? Ordering Physician: Edis Kapoor MD ?? Date of Service: 07/06/24 ?? Procedure(s): CT head/brain wo IV con ?? Accession Number(s): [id number] ? cc: Courtney Remy OFFSET PRESSMAN; Edis Kapoor MD ? Report Number: ?? [id number]: Total DLP = ??648.00 mGy-cm ? CLINICAL HISTORY: New onset personality change? CT head without contrast ? Comparison: None ? Findings: ?? The size and shape of the ventricular system is within normal limits for ?? this patient's age. ?? Minor areas of low-attenuation are seen within the periventricular and ?? deep white matter. ?? Ovalle-white differentiation is well maintained. ?? No midline shift or mass effect. ?? No intracranial hemorrhage. ?? No calvarial fractures. ?? Minimal to mild mucosal thickening within the anterior ethmoid air cells, ?? ebutk-ktwmgma-kvlf-left. There is a 5 mm osteoma within the right anterior ?? ethmoid air cells. Minor mucosal thickening along the inferior bilateral ?? frontal sinuses. ? IMPRESSION: ?? 1. No acute intracranial findings. Specifically, no hemorrhage or acute ?? territorial infarct. ?? 2. Minimal to mild paranasal sinus disease. ? This document has been electronically signed by: Adrián Gary MD on ?? 07/07/2024 00:13:11 ? Dictated By: ?Adrián Gary MD ? Signed By: ?<Electronically signed by Adrián Gary MD in OV> ? 07/07/2413 ? DD/ ? TD/TT: 07/07/24 0013 ? Regulatory Affairs Coordinator: ? Procedure Note Donotuseinterpreter, Image - 07/07/2024 [place] [place] [address] CT Scan Report Signed Patient: Piero Long RMR#: [id number] : 1960Acct:[id number] Age/Sex: 63 / MADM Date: 07/06/24 Loc: HO.ED Attending Dr: Ordering Physician: Edis Kapoor MD Date of Service: 07/06/24 Procedure(s): CT head/brain wo IV con Accession Number(s): [id number] cc: [facility] OFFSET PRESSMAN; Edis Kapoor MD Report Number: [id number]: Total DLP = 648.00 mGy-cm CLINICAL HISTORY: New onset personality change? CT head without contrast Comparison: None Findings: The size and shape of the ventricular system is within normal limits for this patient's age. Minor areas of low-attenuation are seen within the periventricular and deep white matter. Ovalle-white differentiation is well maintained. No midline shift or mass effect. No intracranial hemorrhage. No calvarial fractures. Minimal to mild mucosal thickening within the anterior ethmoid air cells, asmvq-ljfwwzv-kbti-left. There is a 5 mm osteoma within the right anterior ethmoid air cells. Minor mucosal thickening along the inferior bilateral frontal sinuses. IMPRESSION: 1. No acute intracranial findings. Specifically, no hemorrhage or acute territorial infarct. 2. Minimal to mild paranasal sinus disease. This document has been electronically signed by: Adrián Gary MD on 07/07/2024 00:13:11 Dictated By: Adrián Gary MD Signed By: <Electronically signed by Adrián Gary MD in OV> 07/07/24 0014 DD/ 0013 TD/TT: 07/07/24 0013 Regulatory Affairs Coordinator: [facility] External Provider IMG CT PROCEDURES Edited Result - Final * (ABNORMAL) Drug Monitoring, Panel 1, Screen, Urine (07/06/2024 10:01 PM EDT) Opiate Screen Urine Not Detected Not Detect [facility] Comment:Opiate cut-off is 30 0 ng/mL.Positive results are unconfirmed and should not be used fornon-medical purposes. Barbiturates, Urine Not Detected Not Detect [facility] Comment:Barbiturate cut-off is 200 ng/mL.Positive results are unconfirmed and should not be used fornon-medical purposes. Phencyclidine Screen Urine Not Detected Not Detect [facility] Comment:Phencyclidine cut-of f is 25 ng/mL.Positive results are unconfirmed and should not be used fornon-medical purposes. Amphetamine Screen Urine Not Detected Not Detect [facility] Comment:Amphetamine cut-off is 1000 ng/mL.Positive results are unconfirmed and should not be used fornon-medical purposes. Benzodiazepines Screen Urine Not Detected Not Detect [facility] Comment:Benzodiazepine cut-o ff is 200 ng/mL.Positive results are unconfirmed and should not be used fornon-medical purposes. Cocaine Screen Urine Not Detected Not Detect [facility] Comment:Cocaine cut-off is 3 00 ng/mL.Positive results are unconfirmed and should not be used fornon-medical purposes. Cannabinoid Screen Urine POSITIVE(A) Not Detect [facility] Comment:Cannabinoid cut-off is 50 ng/mL.Positive results are unconfirmed and should not be used fornon-medical purposes. Methadone Screen, Urine Not Detected Not Detect ng/mL [facility] Comment:Methadone cut-off is 300 ng/mL.Positive results are unconfirmed and should not be used fornon-medical purposes. FENTANYL URINE Not Detected Not Detect [facility] Comment:Fentanyl cut-off is 1 ng/mL.Positive results are unconfirmed and should not be used fornon-medical purposes. Oxycodone Urine Screen Not Detected Not Detect ng/mL [facility] Comment:Oxycodone cut-off is 100 ng/mL.Positive results are unconfirmed and should not be used fornon-medical purposes. Buprenorphine Screen Not Detected Not Detect ng/mL [facility] Comment:Buprenorphine cut-of f is 5 ng/mL.Positive results are unconfirmed and should not be used fornon-medical purposes. 07/06/2024 10:0 1 PM EDT 07/06/2024 10:11 PM EDT us Generic External Data Provider LAB URINE ORDERAB LES Final Result Performing Organization Address [facility] Co de Phone Number [facility] [address] [place] [phone] * (ABNORMAL) Urinalysis Complete (07/06/2024 10:01 PM EDT) Color Urine Dark Yellow [facility] Appearance Urine Clear [facility] PH 5.5 5.0 - 9.0 [facility] Glucose Urine UA Negative Negative mg/dL [facility] Urine Blood Trace(A) Negative [facility] Specific Donaldson - Urine >=1.030(H) 1.005 - 1.025 [facility] Urine Protein Trace Neg-Trace mg/dL [facility] Urine Ketones Trace Negative mg/dL [facility] Nitrite Urine Negative Negative [facility] Leukocyte Esterase Urine Negative Negative [facility] RBC Urine 11-20(A) 0 - 2 /HPF [facility] Urine WBC 0-5 0 - 5 /HPF [facility] Urine Squamous Epithelial Cell 0-2 0 - 2 /HPF [facility] Urine Bacteria None Seen None Seen [facility] Hyaline Casts, Urine 0-2 0 - 2 /LPF [facility] 07/06/2024 10:0 1 PM EDT 07/06/2024 10:11 PM EDT us Generic External Data Provider LAB URINE ORDERAB LES Final Result Performing Organization Address City/[facility]/ZIP Co de Phone Number [facility] [address] [place] [address] [phone] * (ABNORMAL) POCT HGB A1C (03/11/2024 9:17 AM EST) Hemoglobin A1C 6.2(A) 4.0 - 6.0 % QC Media Lot # [id number] Lot# Expiration Date Blood 03/11/2024 9:17 AM EST [facility] POINT OF CARE TEST ENTER/EDIT ORDERABLES Final Result * (ABNORMAL) Lipid Panel, Standard (09/06/2023 1:48 PM EDT) Triglycerides 533(H) <150 mg/dL [facility] Comment:Desirable Triglyceri de: less than 150 mg/dLBorderline High Triglyceride 150-199 mg/dLHigh Triglyceride: 200-499 mg/dLVery High Triglyceride: greater than or equal to 5OO mg/dL Cholesterol 172 <200 mg/dL [facility] Comment:Desirable Cholestero l: less than 200 mg/dLBorderline High Cholesterol: 200-239 mg/dLHigh Cholesterol: greater than 239 mg/dL LDL Cholesterol Calculated TNP <100 mg/dL [facility] Comment:Unable to calculate the LDL. The formula of Friedwald,Woody, and Ronnie is only valid if the triglycerides areless than 400 mg/dl. HDL Cholesterol 35(L) >40 mg/dL [facility] Comment:Desirable HDL: great er than 40 mg/dL Note: This HDL assay may give artificially low results in patients with liver disease. Blood Venous blood specimen / Unknown 09/06/2023 1:48 PM EDT 09/06/2023 4:11 PM EDT [facility] LAB BLOOD ORDERABLES Final Re sult Performing Organization Address City/[facility]/ZIP Co de Phone Number [facility] [address] [place] [phone] [phone] from Last 3 Months or Most Recently Relevant to Health Maintenance Insurance [facility] STANDARD [facility] MEDICARE ADVANTAGE Care Teams Wort Extractor Relationship Specialty Start Date End Date Courtney Remy FNP [address] [place] [phone] PCP - General Family Medicine 09/09/23
--- NOTE | 2024-07-15 09:50 | MHC.CARE ---
Pt does not meet the criteria for IPLOC and will be discharged. Provider in agreement.
[2024-07-15] MEDS: Acetaminophen 325 MG TABLET 975 MG PO (10:06)
[2024-07-15 11:15] VITALS: BP 102/45; PULSE 95; RESP 18; TEMP 36.7; O2SAT 94
== END 2024-07-15 11:45 | disposition home or self-care (01) ==
PROVIDERS: Emergency Provider Emergency Medicine; PCP Physician Assistant
DX: S46.911A Strain of unspecified muscle, fascia and tendon at shoulder and upper arm level, right arm, initial encounter (principal); S76.011A Strain of muscle, fascia and tendon of right hip, initial encounter; X58.XXXA Exposure to other specified factors, initial encounter; Y93.9 Activity, unspecified; Y92.9 Unspecified place or not applicable; Y99.9 Unspecified external cause status; M25.551 Pain in right hip; M25.511 Pain in right shoulder
CPT/HCPCS: 73030; 73502; 99284; S9485

== ENCOUNTER → 2024-07-15 09:48 | Outpatient (BNV) | payer MEDICARE, SELFPAY | PROVIDERS: Emergency Provider Emergency Medicine; PCP Physician Assistant; Visit Provider Radiology Diagnostic Radiology | DX: Z96.641 Presence of right artificial hip joint (principal); M19.011 Primary osteoarthritis, right shoulder | CPT/HCPCS: 73030; 73502 ==

== ENCOUNTER 2024-08-02 19:37 | Emergency (ER) | payer MEDICARE, SELFPAY ==
[2024-08-02 19:54] VITALS: BP 112/64; BP 118/65; PULSE 86; PULSE 89; RESP 20; TEMP 37.1; O2SAT 96; O2SAT 99; BMI 31.6
--- NOTE | 2024-08-02 20:13 | PC.NURSE ---
pt florence from home, reports he has been having intermittent si and hi thoughts, reports he does not have a plan. pt reports he has been having increased depression and overall has stopped taking his depression medications. pt also reports he was walking his sons dog when the leash wrapped around his legs, and he fell to his knees. pt noted to have bilateral knee abrasions. pt changed over by security. pt calm and cooroperative.
--- OUTSIDE RECORDS SUMMARY | 2024-08-02 20:21 | XMS_ITS | Encounter Summary ---
Author Organization [employer] Address [address] [place] [address] Care Team Providers Care Design And Sales Consultant Name Role Phone [facility] Primary Care Provider [phone] Encounter Details Date Type Department Care Team ([facility] st Contact Info) Description 10/11/2023 Orders Only [facility] [address] [place], [place] [phone] Rebeka Dickey MD [address] [place], [place] [phone] Social History Tobacco Use Types Packs/Day Years [...] Care Team (Late st Contact Info) Description 09/16/2024 11:15 AM EDT Office Visit [facility] [address] [place] [address] Courtney Remy FNP [address] [place] [address] documented as of this encounter Visit Diagnoses Not on filedocumented in this encounter Additional Health Concerns Assessment Noted Time PHQ-9 Depression Total Score: 0 09/06/19 24 12:53 PM EDT documented as of this encounter Care Teams Design And Sales Consultant Relationship Specialty Start Date End Date Courtney Remy FNP [address] [place] [address] PCP - General Family Medicine 09/09/23 documented as of this encounter
--- OUTSIDE RECORDS SUMMARY | 2024-08-02 20:21 | XMS_ITS | Encounter Summary ---
Author Organization [employer] Address [address] [facility] [address] [place] [address] Care Team Providers Care Household Manager Name Role Phone [facility] Primary Care Provider [phone] Reason for Visit * Reason Onset Date Comments Med Refill 12/02/2023 Encounter Details Date Type Department Care Team ([facility] st Contact Info) Description 12/02/2023 Telephone [facility] [address] [place], [place] [phone] [facility] [address] [place], [place] [phone] Med Refill Social History Tobacco Use Types [...] LITE) test strip To be sent to: [facility] - [place], [place] - [address] [place] [address] documented in this encounter Plan of Treatment Upcoming Encounters Date Type Department Care Team ([facility] st Contact Info) Description 09/16/2024 11:15 AM EDT Office Visit [facility] [address] [place] [address] PhoenixCourtney FNP [address] [place] [address] documented as of this encounter Visit Diagnoses Not on filedocumented in this encounter Additional Health Concerns Assessment Noted Time PHQ-9 Depression Total Score: 0 11/11/19 24 11:00 AM EDT documented as of this encounter Care Teams Household Manager Relationship Specialty Start Date End Date Courtney Remy FNP [address] [place] [phone] PCP - General Family Medicine 09/09/23 documented as of this encounter
--- OUTSIDE RECORDS SUMMARY | 2024-08-02 20:21 | XMS_ITS | Clinical Summary ---
Author Organization [employer] Address [address] [facility] [address] [place] [address] Care Team Providers Care Joint Cleaning Machine Operator Name Role Phone Lemitar [facility] Primary Care Provider [phone] Allergies No known active allergies Medications * [...] hyperglycemia, with long-term current use of insulin ([facility]) Use one pad each to prep skin prior to injection as directed 100 each 11 4 Active TRUEplus Lancets 33G miscIndications: Type 2 diabetes mellitus with hyperglycemia, with long-term current use of insulin ([facility]) USE DIRECTED TO TEST BLOOD SUGAR THREE TIMES DAILY 100 each 11 4 Active Continuous Glucose Magazine Repairer (FreeStyle Curry 2 Ogilvie) deviceIndication s:Type 2 diabetes mellitus with hyperglycemia, with long-term current use of insulin (CMS/HCC) Scan sensor every 8 hours 1 each 4 Active Continuous Glucose Sensor (FreeStyle Curry 2 Sensor) miscIndications: Type 2 diabetes mellitus with hyperglycemia, with long-term current use of insulin (CMS/HCC) Apply 1 sensor every 14 days 2 each 3 4 Active glucose blood (FREESTYLE LITE) test stripIndications :Type 2 diabetes mellitus with hyperglycemia, with long-term current use of insulin ([facility]) USE DIRECTED TO TEST BLOOD SUGAR THREE TIMES DAILY 100 each 1 4 Active atorvastatin (Lipitor) 20 MG tabletIndication s:Type 2 diabetes mellitus with hyperglycemia, with long-term current use of insulin ([facility]) Take 1 tablet (20 mg) by mouth Once per day. 90 tablet 3 4 11/11/19 25 Active OneTouch Delica Lancets 33G miscIndications: Type 2 diabetes mellitus with hyperglycemia, with long-term current use of insulin ([facility]) Use to test blood sugar three times daily 100 each 11 4 Active Blood Glucose Monitoring Suppl (ONE TOUCH ULTRA 2) w/Device kitIndications:T ype 2 diabetes mellitus with hyperglycemia, with long-term current use of insulin ([facility]) Use to test blood sugar three times daily 1 kit 4 Active glucose blood (OneTouch Ultra) test stripIndications :Type 2 diabetes mellitus with hyperglycemia, with long-term current use of insulin ([facility]) Use to test blood sugar three times daily 100 each 4 11/26/19 25 Active dulaglutide (Trulicity) 1.5 MG/0.5ML solution pen-injectorIndi cations:Type 2 diabetes mellitus without complication, without long-term current use of insulin ([facility]) Inject 1.5 mg under the skin 1 [...] complication, without long-term current use of insulin ([facility]) Chew 4 tablets (16 g) if needed for low blood sugar. 50 tablet 12 4 03/11/20 25 Active losartan (Cozaar) 25 MG tablet TAKE ONE TABLET BY MOUTH EVERY DAY 90 tablet 5 Active gabapentin (Neurontin) 300 MG capsule Take 1 capsule by mouth Once per day. 5 Active traZODone (Desyrel) 50 MG tablet Take 1 tablet by mouth at bedtime. 5 Active Active Problems Problem Noted Date Diagnosed Date Homicidal ideation 06/22/2024 Cannabis use disorder 06/18/2024 Healthcare maintenance 12/17/2023 Overview (12/17/2023): - Previously declined all Type 2 diabetes mellitus wit h hyperglycemia, with long-term current use of insulin 09/17/2023 Overview (12/17/2023): - Does not like CGM Trulicity Foot Exam: Risk 1 10/2023--referred to podiatry for routine foot care Eye Exam: Referred to [facility] Statin: Yes ASA: Yes Bar/Arb: Yes Essential hypertension 09/04/2023 Hyperlipidemia 09/04/2023 Encounters * This document contains information received from the source organization and may not represent a complete record from that organization. Date Type Department Care Team Description 07/21/[address] [address] [facility] No Show 07/16/[address] [address] [facility] 07/14/2024 Patient Outreach [address] [address] [facility] Transition Of Care (Tcm) (Scheduled Direct Line) 07/08/[address] [address] [facility] No Show 07/06/2024 Orders Only GENERIC EXTERNAL DATA DEPARTMENT Provider, Generic External Data 06/17/2024 Patient Outreach [facility] [address] [place] [address] LemitarCourtney [facility] Care Coordination ([facility] outreach for [facility] housing search-referral completed ) 06/17/2024 Telephone [facility] [place] [address] LemitarCourtney FNP 06/16/2024 Telephone [facility] [place] [place] [address] LemitarCourtney [facility] chart prep 06/08/2024 Patient Outreach [facility] [place] [place] [address] LemitarCourtney [facility] Pre-visit Planning ((Unable to reach for PVP screening, LVM)) from Last 3 Months Immunizations Name Administration [...] Description 09/16/2024 11:15 AM EDT Office Visit [facility] MEDICINE [address] [place] [address] [facility] [address] [place] [address] Health Maintenance Due Date Last Done Comments CT Colonography 1962 Colonoscopy 1962 FIT DNA/Cologuard 1962 FIT 1962 FOBT 1962 HIV Screening 1962 Sigmoidoscopy 1962 Hepatitis C Screening 1980 Diabetes: Urine Protein Screening 1981 Zoster Vaccines (1 of 2) 2012 Alcohol/Substance Use Screening 09/05/2024 09/06/2023 Lipid Panel 09/05/2024 09/06/2023 SDOH Screening 09/05/2024 09/06/2023 Diabetes: Hemoglobin A1C 09/09/2024 024, 12/18/2023, 09/06/2023 Diabetes: Foot Exam 11/10/2024 11/11/2023, 11/11/2023, 11/11/2023 Depression Screening 03/11/2025 03/11/2024, 03/11/20 24 Tobacco Screening 03/11/2025 03/11/2024 Eye Exam 03/06/2026 03/06/2024, 02/22, 03/05/2024, Additional history exists DTaP/Tdap/Td Vaccines (2 - Td or Tdap) 11/10/2033 11/11/2023 RSV Patients and Patients Aged 60 years or older (1 - 1-dose 75+ series) 2037 Pneumococcal Vaccine: 50+ Years Completed 11/11/2023 Influenza [...] complication, without long-term current use of insulin ([facility]/HCC) LIPID PANEL, STANDARD Routine 09/06/2023 1:48 PM EDT Type 2 diabetes mellitus with hyperglycemia, with long-term current use of insulin ([facility]) from Last 3 Months or Most Recently Relevant to Health Maintenance Results * CT Head w/o Contrast (07/07/2024 12:13 AM EDT) Anatomical Region Laterality Modality Head, Neck Computed Tomogra phy 07/07/2024 12:1 3 AM EDT Narrative 07/07/2024 12:15 AM EDT ? [facility] ?[address] ?[place] [address] ? CT Scan Report ? Signed ? Patient: Piero Long ?MR#: [id number] ?? [id number] ? : 1960 ?Acct:[id number] ? Age/Sex: 63 / M ?ADM Date: 07/06/24 ? Loc: HO.ED ? Attending Dr: ? Ordering Physician: Edis Kapoor MD ?? Date of Service: 07/06/24 ?? Procedure(s): CT head/brain wo IV con ?? Accession Number(s): [id number] ? cc: Courtney Remy RN [facility]; Edis Kapoor MD ? Report Number: ?? [id number]: Total DLP = ??648.00 mGy-cm ? CLINICAL [...] within the anterior ethmoid air cells, ?? psupr-allknva-ajtb-left. 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 07/07/24 0014 ? DD/ 0013 ? TD/TT: 07/07/24 0013 ? Hide Puller: ? Procedure Note Annabelle, Marvin - 07/07/[address] [place] [address] [address] Scan Report Signed Patient: Piero Long RMR#: [id number] : 1960Acct:[id number] Age/Sex: 63 / MADM Date: 07/06/24 Loc: HO.ED Attending Dr: Ordering Physician: Edis Kapoor MD Date of Service: 07/06/24 Procedure(s): CT head/brain wo IV con Accession Number(s): [id number] cc: LemitarCourtney RN [facility]; Edis Kapoor MD Report Number: [id number]: Total DLP = 648.00 mGy-cm CLINICAL HISTORY: [...] thickening within the anterior ethmoid air cells, fbnbn-bhqgelt-erpt-left. 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 Barbiturates, Urine Not Detected Not Detect [facility] Comment:Barbiturate cut-off is 200 ng/mL.Positive results are unconfirmed and should not be used fornon-medical purposes. Phencyclidine Screen Urine Not Detected Not Detect [facility] Comment:Phencyclidine cut-of f is 25 ng/mL.Positive results are unconfirmed and should not be used fornon-medical purposes. Amphetamine Screen Urine Not Detected Not Detect [facility] Comment:Amphetamine cut-off is 1000 ng/mL.Positive results are unconfirmed and should not be used fornon-medical purposes. Benzodiazepines Screen Urine Not Detected Not Detect [facility] Comment:Benzodiazepine cut-o ff is 200 ng/mL.Positive results are unconfirmed and should not be used fornon-medical purposes. Cocaine Screen Urine Not Detected Not Detect [facility] Comment:Cocaine cut-off is 3 00 ng/mL.Positive results are unconfirmed and should not be used fornon-medical purposes. Cannabinoid Screen Urine POSITIVE(A) Not Detect [facility] Comment:Cannabinoid cut-off is 50 ng/mL.Positive results are unconfirmed and should not be used fornon-medical purposes. Methadone Screen, Urine Not Detected Not Detect ng/mL [facility] Comment:Methadone cut-off is 300 ng/mL.Positive results are unconfirmed and should not be used fornon-medical purposes. FENTANYL URINE Not Detected Not Detect [facility] Comment:Fentanyl cut-off is 1 ng/mL.Positive results are unconfirmed and should not be used fornon-medical purposes. Oxycodone Urine Screen Not Detected Not Detect ng/mL [facility] Comment:Oxycodone cut-off is 100 ng/mL.Positive results are unconfirmed and should not be used fornon-medical purposes. Buprenorphine Screen Not Detected Not Detect ng/mL [facility] Comment:Buprenorphine cut-of f is 5 ng/mL.Positive results are unconfirmed and should not be used fornon-medical purposes. 07/06/2024 10:0 1 PM EDT 07/06/2024 10:11 PM EDT us Generic External Data Provider LAB URINE ORDERAB LES Final Result Performing Organization Address City/State/[facility] Co de Phone Number [facility] [address] [place] [phone] * (ABNORMAL) Urinalysis Complete (07/06/2024 10:01 PM EDT) Color Urine Dark Yellow [facility] Appearance Urine Clear [facility] PH 5.5 5.0 - 9.0 [facility] Glucose Urine UA Negative Negative mg/dL [facility] Urine Blood Trace(A) Negative [facility] Specific [place] - Urine >=1.030(H) 1.005 - 1.025 [facility] Urine Protein Trace Neg-Trace mg/dL [facility] Urine Ketones Trace Negative mg/dL [facility] Nitrite Urine Negative Negative [facility] Leukocyte Esterase Urine Negative Negative [facility] RBC Urine 11-20(A) 0 - 2 /HPF [facility] Urine WBC 0-5 0 - 5 /HPF [facility] Urine Squamous Epithelial Cell 0-2 0 - 2 /HPF [facility] Urine Bacteria None Seen None Seen [facility] Hyaline Casts, Urine 0-2 0 - 2 /LPF [facility] 07/06/2024 10:0 1 PM EDT 07/06/2024 10:11 PM EDT Generic External Data Provider LAB URINE ORDERAB LES Final Result [facility] [address] [place] [phone] * (ABNORMAL) POCT HGB A1C (03/11/2024 9:17 AM EST) Hemoglobin A1C 6.2(A) 4.0 - 6.0 % QC Media Lot # [id number] Lot# Expiration Date Blood 03/11/2024 9:17 AM EST [facility] RN [facility] POINT OF CARE TEST ENTER/EDIT ORDERABLES Final Result * (ABNORMAL) Lipid Panel, Standard (09/06/2023 1:48 PM EDT) Triglycerides 533(H) <150 mg/dL [facility] Comment:Desirable Triglyceri de: less than 150 mg/dLBorderline High Triglyceride 150-199 mg/dLHigh Triglyceride: 200-499 mg/dLVery High Triglyceride: greater than or equal to 5OO mg/dL Cholesterol 172 <200 mg/dL [facility] Comment:Desirable Cholestero l: less than 200 mg/dLBorderline High Cholesterol: 200-239 mg/dLHigh Cholesterol: greater than 239 mg/dL LDL Cholesterol Calculated TNP <100 mg/dL [facility] Comment:Unable to calculate the LDL. The formula of Friedwald,Woody, and Ronnie is only valid if the triglycerides areless than 400 mg/dl. HDL Cholesterol 35(L) >40 mg/dL [facility] Comment:Desirable HDL: great er than 40 mg/dL Note: This HDL assay may give artificially low results in patients with liver disease. Blood Venous blood specimen / Unknown 09/06/2023 1:48 PM EDT 09/06/2023 4:11 PM EDT [facility] LAB BLOOD ORDERABLES Final Re sult [facility] [address] [place] [phone] from Last 3 Months or Most Recently Relevant to Health Maintenance Insurance [facility] [place] [address] Care Teams Joint Cleaning Machine Operator Relationship Specialty Start Date End Date Lemitar, Courtney, RN [facility] [address] [place] [phone] PCP - General Family Medicine 09/09/23
--- OUTSIDE RECORDS SUMMARY | 2024-08-02 20:21 | XMS_ITS | Clinical Summary ---
Author Organization [address] [facility] Address [address] [place] [address] Phone Care Team Providers Care Bread And Pastry Baker Name Role Phone [facility] Primary Care Provider [phone] Allergies No known active allergies Medications atorvastatin [...] hyperlipidemia 01/07/2024 T2DM (type 2 diabetes mellitus) (CMS/HCC V24, CM S/HCC V28) 01/07/2024 Social History Tobacco Use Types Packs/Day Years [...] 04/16/2024 12:58 PM EST Plan of Treatment Health Maintenance Due Date Last Done Comments [...] Procedure Name Priority Date/Time Associated Diagnosis Comments COMPREHENSIVE METABOLIC PANEL STAT 04/16/2024 3:36 PM EST from Last 3 Months or Most Recently Relevant to Health Maintenance Results * Comprehensive metabolic panel (04/16/2024 3:36 PM EST) Sodium 142 133 - 145 mmol/L LAB CHEMISTRY METHOD 04/16/2024 4:39 PM [facility] Potassium 4.0 3.5 - 5.5 mmol/L LAB CHEMISTRY METHOD 04/16/2024 4:39 PM [facility] Chloride 108 96 - 110 mmol/L LAB CHEMISTRY METHOD 04/16/2024 4:39 PM [facility] CO2 29 21 - 32 mmol/L LAB CHEMISTRY METHOD 04/16/2024 4:39 PM [facility] Anion Gap 5 3 - 11 LAB CHEMISTRY METHOD 04/16/2024 4:39 PM [facility] Glucose 99 70 - 100 mg/dL LAB CHEMISTRY METHOD 04/16/2024 4:39 PM [facility] BUN 22 5 - 25 mg/dL LAB CHEMISTRY METHOD 04/16/2024 4:39 PM [facility] Creatinine 1.16 0.70 - 1.30 mg/dL LAB CHEMISTRY METHOD 04/16/2024 4:39 PM [facility] eGFR 72 >=60 mL/min/1. 73m2 LAB CHEMISTRY METHOD 04/16/2024 4:39 PM [facility] Comment:Calculation based on the??Chronic Kidney Disease Epidemiology Collaboration (CKD-EPI) equation refit??without adjustment for race. BUN/Creatinine Ratio 19.0 LAB CHEMISTRY METHOD 04/16/2024 4:39 PM [facility] Calcium 9.4 8.5 - 10.5 mg/dL LAB CHEMISTRY METHOD 04/16/2024 4:39 PM [facility] AST (SGOT) 17 10 - 42 unit/L LAB CHEMISTRY METHOD 04/16/2024 4:39 PM [facility] ALT (SGPT) 25 10 - 60 unit/L LAB CHEMISTRY METHOD 04/16/2024 4:39 PM [facility] Alkaline Phosphatase 74 42 - 121 unit/L LAB CHEMISTRY METHOD 04/16/2024 4:39 PM [facility] Total Protein 8.0 6.0 - 8.0 g/dL LAB CHEMISTRY METHOD 04/16/2024 4:39 PM [facility] Albumin 4.3 3.2 - 5.0 g/dL LAB CHEMISTRY METHOD 04/16/2024 4:39 PM [facility] Total Bilirubin 0.6 0.0 - 1.4 mg/dL LAB CHEMISTRY METHOD 04/16/2024 4:39 PM [facility] Blood Venous blood specimen / Unknown Venipuncture / Unknown 04/16/2024 3:36 PM EST 04/16/2024 4:01 PM EST Scout Florez MD LAB BLOOD ORDERABLES lEsy dominguez Result [facility] [address] [place] [address], from Last 3 Months or Most Recently Relevant to Health Maintenance Insurance MEDICAID - [place] [employer] MEDICARE Care Teams Bread And Pastry Baker Relationship Specialty Start Date End Date Sandrita Courtney [address] [place] [phone] PCP - General 11/22/23
[2024-08-02 20:38] LABS: MANUAL DIFF FLAG NO
[2024-08-02 20:40] LABS: Basophils Absolute Auto 0.1 X10*3/uL (0.0-0.2); Basophils Percent Auto 0.6 % (0-2); Eosinophils Absolute Auto 0.3 X10*3/uL (0.0-0.4); Hematocrit 38.9 % (42.0-52.0); Hemoglobin 13.4 g/dl (14.0-18.0); Imm Gran Abs Auto 0.02 X10*3/uL (0.00-0.03); Imm Gran Pct Auto 0.2 % (0.0-0.4); Mean Corpuscular HGB Conc 34.4 g/dl (31.0-36.0); Mean Corpuscular Hemoglobin 31.3 pg (27.0-33.0); Mean Corpuscular Volume 90.9 fL (80.0-98.0); Mean Platelet Volume 10.9 fL (9.4-12.4); Monocytes Absolute Auto 0.8 X10*3/uL (0.1-1.2); Monocytes Percent Auto 8.9 % (2-11); Neutrophils Absolute Auto 5.1 x10*3/uL (2.0-8.3); Neutrophils Percent Auto 55.3 % (45-73); Platelet Count 226 X10*3/uL (160-400); Red Blood Count 4.28 X10*6/uL (4.60-5.80); Red Cell Distribution Width 13.7 % (11.0-16.0); White Blood Count 9.3 X10*3/uL (4.8-10.8)
[2024-08-02 20:55] LABS: Alanine Aminotransferase 28 U/L (0-40); Alkaline Phosphatase 79 U/L (39-117); Anion Gap 15 (12-20); Aspartate Amino Transferase 44 U/L (5-37); Bilirubin Total 0.4 mg/dL (0.0-1.0); Blood Urea Nitrogen 23 mg/dL (9-16); Calcium 9.4 mg/dL (8.4-10.2); Carbon Dioxide 27 mmol/L (22-29); Chloride 106 mmol/L (96-108); Creatinine Clr Calc Pharmacy 106.7; Estimated Glomerular Filt Rate > 60; Ethanol < 10 mg/dL; Glucose Random 110 mg/dL (60-115); Potassium 3.8 mmol/L (3.3-5.1); Sodium 144 mmol/L (135-145); Total Protein 6.8 g/dL (6.5-8.0)
--- NOTE | 2024-08-02 21:23 | ED_ITS ---
HPI - Psych General Chief Complaint: Psychiatric Symptoms Stated Complaint: FALL, WANTS PSYCH EVAL PER EMS Time Seen by Provider: 08/02/24 21:21 Source: patient Mode of arrival: EMS Limitations: no limitations History of Present Illness ED Provider: HPI Narrative: Patient's history of depression not taking his medication for last 3 days homeless for last 1 month comes here for increased depression and intermittent HI thoughts denied any SI history of same in the past ,patient's feels too much going on and wouldl like to talk to care team Related Data Home Medications ?Medication ?Instructions ?Recorded ?Confirmed acetaminophen 325 mg tablet 975 mg PO Q6H PRN Headache/Pain, 08/02/24 08/02/24 Scale 1-10 fluoxetine 20 mg capsule 20 mg PO BEDTIME 08/02/24 08/02/24 Previous Rx's ?Medication ?Instructions ?Recorded dulaglutide 1.5 mg/0.5 mL 1.5 mg (0.5 mL) subcut QWEEK #4 07/09/24 subcutaneous pen injector multiple units (Trulicity) atorvastatin 20 mg tablet 20 mg PO DAILY #7 tabs 07/14/24 gabapentin 300 mg capsule 300 mg PO BEDTIME #7 caps 07/14/24 losartan 25 mg tablet 25 mg PO DAILY #7 tabs 07/14/24 trazodone 50 mg tablet 50 mg PO BEDTIME MRX1 PRN Insomnia 07/14/24 #7 tabs Allergies Allergy/AdvReac Type Severity Reaction Status Date / Time No Known Allergies Allergy Verified 08/02/24 20:02 Review of Systems 2 Review of Systems: Yes all other systems are reviewed and are negative PMFSH Past Medical History Medical History Depression Social History Social History Household Members: Children Household Members Other:: common law and 40 year old son. Housing: Homeless Do you presently have visiting nurse or other home services: No Unable to assess alcohol history related to: Unknown Patient Tobacco Use Status: Never used Tobacco Smoked in Last 30 Days: No Second Hand Smoke Exposure: No Use of substances other than those prescribed or required for medical reasons: Yes Substance Use Type: Marijuana Advance Directives: No Advance Directives Information Provided: No Do you have a plan to hurt others: No Plan service: Yes ([employer]) Sexual orientation: Straight/Heterosexual Physical Exam 2 Vital Signs: Vital Signs: Last Vital Signs Temp 97.3 F 08/03/24 07:50 Pulse 74 08/03/24 07:50 Resp 20 08/03/24 07:50 BP 121/78 08/03/24 08:17 Pulse Ox 98 08/03/24 07:50 O2 Del Method Room Air 08/03/24 07:50 BMI result Body Mass Index 31.6 Appearance: Alert. Oriented X3. No acute distress. Eyes: No pallor or icterus ENT: Pharynx normal. Oral Mucosa moist Neck: Normal inspection. Neck supple. CVS: Normal heart rate and rhythm. Pulses normal. Respiratory: No respiratory distress. Equal air entry bilateral, no wheezing/rales/rhonchi Abdomen: Soft and nontender. Bowel sounds are present, no mass palpable, no CVA tenderness Skin: Skin warm and dry. Normal skin color. Normal skin turgor. Extremities: No lower extremity edema. No calf tenderness Psych: Feel depressed denied any SI or HI at this time no hallucination or delusion Neuro: Oriented X 3. No motor deficit. No sensory deficit.No cerebellar signs , cranial nerves II-XII intact Course Reevaluation(s) Reevaluation #1: This patient was signed out to me by the previous emergency providers. The patient had presented with symptoms of depression and some degree of hopelessness. He has been seen by the care team and they have made arrangements for him to go to the respite facility in [place]. The patient is comfortable with this plan. He says he has been to that facility before and he likes it. He is happy to go there and feels that this is an appropriate discharge. He feels safe going there. He will therefore be discharged to follow up with his regular doctor. -- Dr. Thomas Time: 17:40 Medications Administered Generic Name Dose Route Start Last Admin Trade Name Freq PRN Reason Stop Dose Admin Acetaminophen 975 mg 08/02/24 21:23 08/02/24 22:25 Acetaminophen 325 Mg Tablet PO 975 mg Q6H PRN Administration Headache/Pain, Scale 1-10 Atorvastatin Calcium 20 mg 08/03/24 09:00 08/03/24 08:17 Atorvastatin Calcium 20 Mg Tablet PO 20 mg DAILY RICKEY Administration Fluoxetine HCl 20 mg 08/02/24 21:30 08/02/24 22:26 Fluoxetine Hcl 20 Mg Capsule PO 20 mg BEDTIME RICKEY Administration Gabapentin 300 mg 08/02/24 21:30 08/02/24 22:26 Gabapentin 300 Mg Capsule PO 300 mg BEDTIME RICKEY Administration Losartan Potassium 25 mg 08/03/24 09:00 08/03/24 08:17 Losartan Potassium 25 Mg Tablet PO 25 mg DAILY RICKEY Administration Protocol Pt Owned ( 1.5 mg 08/03/24 12:15 08/03/24 13:10 Dulaglutide [ SUBCUT 1.5 mg Trulicity] 1.5 Mg/0. Mo RICKEY Administration 5 Ml Pen Injector) Trazodone HCl 50 mg 08/02/24 21:23 08/02/24 22:25 Trazodone Hcl 50 Mg Tablet PO 50 mg BEDTIME MRX1 PRN Administration Insomnia Medical Decision Making Medical Decision Making MDM Narrative: Patient with significant depression with HI thoughts requesting to talk to care team will get care team consult medically cleared Lab Data MDM Lab Attestation statement: I reviewed the patient's lab results. 08/02/24 20:32 08/02/24 20:32 Labs: Lab Results 08/02/24 08/02/24 Range/Units 20:32 22:13 WBC 9.3 (4.8-10.8) X10*3/uL RBC 4.28 L (4.60-5.80) X10*6/uL Hgb 13.4 L (14.0-18.0) g/dl Hct 38.9 L (42.0-52.0) % MCV 90.9 (80.0-98.0) fL MCH 31.3 (27.0-33.0) pg MCHC 34.4 (31.0-36.0) g/dl RDW 13.7 (11.0-16.0) % Plt Count 226 (160-400) X10*3/uL MPV 10.9 (9.4-12.4) fL Immature Gran % (Auto) 0.2 (0.0-0.4) % Neut % (Auto) 55.3 (45-73) % Lymph % (Auto) 32.0 (20-40) % [place] % (Auto) 8.9 (2-11) % Eos % (Auto) 3.0 (0-4) % Baso % (Auto) 0.6 (0-2) % Lymph # (Auto) 3.0 (1.2-4.9) X10*3/uL [place] # (Auto) 0.8 (0.1-1.2) X10*3/uL Eos # (Auto) 0.3 (0.0-0.4) X10*3/uL Baso # (Auto) 0.1 (0.0-0.2) X10*3/uL Abs Immat Gran (auto) 0.02 (0.00-0.03) X10*3/uL Absolute Neuts (auto) 5.1 (2.0-8.3) x10*3/uL Absolute Nucleated RBC 0.000 (0.0-0.012) X10*3/uL Nucleated RBC % (auto) 0.0 (0.0-0.2) /100WBC Sodium 144 (135-145) mmol/L Potassium 3.8 (3.3-5.1) mmol/L Chloride 106 (96-108) mmol/L Carbon Dioxide 27 (22-29) mmol/L Anion Gap 15 (12-20) BUN 23 H (9-16) mg/dL Creatinine 0.94 (0.5-1.4) mg/dL Estim Creat Clear Calc 106.7 Estimated GFR > 60 Random Glucose 110 (60-115) mg/dL Calcium 9.4 (8.4-10.2) mg/dL Total Bilirubin 0.4 (0.0-1.0) mg/dL AST 44 H (5-37) U/L ALT 28 (0-40) U/L Alkaline Phosphatase 79 (39-117) U/L Total Protein 6.8 (6.5-8.0) g/dL Albumin 4.0 (3.5-5.0) g/dL Urine Color Yellow Urine Appearance Clear Urine pH 5.5 (5.0-9.0) Ur Specific [place] 1.025 (1.005-1.025) Urine Protein Negative (Neg-Trace) mg/dL Urine Glucose (UA) Negative (Negative) mg/dL Urine Ketones Trace (Negative) mg/dL Urine Blood Trace H (Negative) Urine Nitrite Negative (Negative) Ur Leukocyte Esterase Negative (Negative) Urine RBC 3-5 H (0-2) /HPF Urine WBC 0-5 (0-5) /HPF Ur Squamous Epith Cells 0-2 (0-2) /HPF Urine Bacteria None Seen (None Seen) Hyaline Casts 0-2 (0-2) /LPF Urine Opiates Screen Not Detected (Not Detect) Ur Buprenorphine Scrn Not Detected (Not Detect) ng/mL Ur Oxycodone Screen Not Detected (Not Detect) ng/mL Urine Methadone Screen Not Detected (Not Detect) ng/mL Urine Fentanyl Screen Not Detected (Not Detect) Ur Barbiturates Screen Not Detected (Not Detect) Ur Phencyclidine Scrn Not Detected (Not Detect) Ur Amphetamines Screen Not Detected (Not Detect) U Benzodiazepines Scrn Not Detected (Not Detect) Urine Cocaine Screen Not Detected (Not Detect) U Marijuana (THC) Screen POSITIVE H (Not Detect) Ethyl Alcohol < 10 mg/dL Discharge Plan Discharge Clinical Impression: Depression Patient Disposition: Xfer Other Transfer Details: [facility] Additional Instructions: Arrangements has been made for you to go to a respite facility. Please continue your regular medications. Please follow up soon with your regular providers. Return to the emergency room if significantly worse. You were seen in our Emergency Department today for treatment of a behavioral health issue. It is important after your visit that you follow up with either your behavioral health provider or a primary care doctor within 7 days.? If you have trouble finding a therapist you can reach out to [address] [phone] The National Suicide and Crisis Lifeline can be reached 7 days a week 24 hours a day.? Call 988 to speak with someone.? Return for any worsening symptoms or concerns such as thoughts of self harm or harm to others. Please call 911 if you feel your mental health is worsening.? Prescriptions: No Action Trulicity 1.5 mg/0.5 mL pen injector 1.5 mg subcut QWEEK Qty: 4 0RF trazodone 50 mg Tablet 50 mg PO BEDTIME MRX1 PRN (Reason: Insomnia) Qty: 7 4RF gabapentin 300 mg Capsule 300 mg PO BEDTIME Qty: 7 4RF atorvastatin 20 mg tablet 20 mg PO DAILY Qty: 7 4RF losartan 25 mg tablet 25 mg PO DAILY Qty: 7 4RF fluoxetine 20 mg capsule 20 mg PO BEDTIME acetaminophen 325 mg tablet 975 mg PO Q6H PRN (Reason: Headache/Pain, Scale 1-10) Referrals: Courtney Remy FNP [Nurse Practitioner] - (depression) Interventions: [place]-Suicide Risk Severity Scale Last Done: 08/02/24 20:17 Print Language: Syriac
--- NOTE | 2024-08-02 21:59 | MHC.EDTECH ---
pt taking a shower
[2024-08-02 22:22] LABS: Appearance Urine Clear; Color Urine Yellow; Glucose Urine UA Negative (Negative); Leukocyte Esterase Urine Negative (Negative); Nitrite Urine Negative (Negative); PH 5.5 (5.0-9.0); Specific Gravity - Urine 1.025 (1.005-1.025); UMIC TRIGGER UACC YES; Urine Blood Trace (Negative); Urine Ketones Trace mg/dL (Negative); Urine Protein Negative (Neg-Trace)
[2024-08-02] MEDS: traZODone HCL 50 MG TABLET PO (22:25)
[2024-08-02] MEDS: Acetaminophen 325 MG TABLET 975 MG PO (22:25)
[2024-08-02] MEDS: Gabapentin 300 MG CAPSULE PO (22:26)
[2024-08-02] MEDS: FLUoxetine HCl 20 MG CAPSULE PO (22:26)
[2024-08-02 22:31] LABS: Amphetamine Screen Urine Not Detected (Not Detect); Barbiturates, Urine Not Detected (Not Detect); Benzodiazepines Screen Urine Not Detected (Not Detect); Buprenorphine Scr Not Detected (Not Detect); Cannabinoid Screen Urine POSITIVE (Not Detect); Cocaine Screen Urine Not Detected (Not Detect); Fentanyl, urine Not Detected (Not Detect); Methadone Screen, Urine Not Detected (Not Detect); Opiate Screen Urine Not Detected (Not Detect); Oxycodone Screen Urine Not Detected (Not Detect); Phencyclidine Screen Urine Not Detected (Not Detect)
[2024-08-02 22:35] LABS: Bacteria Urine None Seen (None Seen); Hyaline Casts Urine 0-2 /LPF (0-2); Squamous Epithelial Cell Urine 0-2 /HPF (0-2); WBC Urine 0-5 /HPF (0-5)
--- NOTE | 2024-08-03 07:39 | PC.NURSE ---
Assumed care of patient at 0645, patient appears to be in no apparent distress this am, sitting in milieu, offering no complaints this am. Continue plan of care for [facility]PL[facility]
[2024-08-03 07:50] VITALS: BP 121/78; PULSE 74; RESP 20; TEMP 36.3; O2SAT 98
[2024-08-03 08:17] VITALS: BP 121/78
[2024-08-03] MEDS: Losartan Potassium 25 MG TABLET PO (08:17)
[2024-08-03] MEDS: Atorvastatin Calcium 20 MG TABLET PO (08:17)
[2024-08-03] MEDS: [UNRECOGNIZED DRUG - OTHER] 1.5 EACH SUBCUT (13:10)
--- NOTE | 2024-08-03 17:02 | MHC.CARE ---
Patient accepted to [facility] at [address] in [place], intake time aung. ED providers notified
[2024-08-03 17:55] VITALS: BP 149/66; PULSE 71; RESP 18; TEMP 36.3; O2SAT 97
== END 2024-08-03 17:56 | disposition other institution (70) ==
PROVIDERS: Emergency Provider Internal Medicine
DX: F33.1 Major depressive disorder, recurrent, moderate (principal); R45.850 Homicidal ideations; F12.90 Cannabis use, unspecified, uncomplicated; Z59.00 Homelessness unspecified; Z79.899 Other long term (current) drug therapy; Z51.81 Encounter for therapeutic drug level monitoring
CPT/HCPCS: 36415; 80053; 80307; 81001; 85025; 99285; S9485

== ENCOUNTER 2024-08-15 21:03 | Emergency (ER) | payer MEDICARE, SELFPAY ==
[2024-08-15 21:15] VITALS: BP 117/89; PULSE 100; RESP 16; TEMP 36.7; O2SAT 97
--- NOTE | 2024-08-15 21:22 | ED.GENADULT ---
HPI - General Adult General Stated complaint: can't feel feet?, jittery Time Seen by Provider: 08/15/24 21:07 Source: patient, EMS and old records reviewed Mode of arrival: EMS Limitations: no limitations History of Present Illness ED Provider: DR. Brown HPI narrative: a 63-year-old male with history of T2 DM, being homeless [facility], patient has been feeling very anxious has not been checking his BS for the last 2 weeks. Patient been having bilateral feet numbness for the past few days, patient also feel anxious, and stressed out, no SI, or HI, no hallucination. Related Data Home Medications ?Medication ?Instructions ?Recorded ?Confirmed acetaminophen 325 mg tablet 975 mg PO Q6H PRN Headache/Pain, 08/02/24 08/02/24 Scale 1-10 fluoxetine 20 mg capsule 20 mg PO BEDTIME 08/02/24 08/02/24 Previous Rx's ?Medication ?Instructions ?Recorded dulaglutide 1.5 mg/0.5 mL 1.5 mg (0.5 mL) subcut QWEEK #4 07/09/24 subcutaneous pen injector multiple units (Trulicity) atorvastatin 20 mg tablet 20 mg PO DAILY #7 tabs 07/14/24 gabapentin 300 mg capsule 300 mg PO BEDTIME #7 caps 07/14/24 losartan 25 mg tablet 25 mg PO DAILY #7 tabs 07/14/24 trazodone 50 mg tablet 50 mg PO BEDTIME MRX1 PRN Insomnia 07/14/24 #7 tabs Allergies Allergy/AdvReac Type Severity Reaction Status Date / Time No Known Allergies Allergy Verified 08/02/24 20:02 Review of Systems Review of Systems: All other systems are reviewed and are negative Constitutional: Reports as per HPI and Reports no additional constitutional complaints Eyes: Reports as per HPI and Reports no additional eye complaints Reports system reviewed and no additional complaints, except as documented Cardiovascular: Reports as per HPI and Reports no additional cardiovascular complaints Respiratory: Reports as per HPI and Reports no additional respiratory complaints Gastrointestinal: Reports as per HPI and Reports no additional gastrointestinal complaints Genitourinary: Reports no additional female genitourinary complaints Musculoskeletal: Reports no additional musculoskeletal complaints Skin/Breast: Reports system reviewed and no additional complaints, except as docu Psychiatric: Reports no additional psychiatric complaints Endocrine: Reports no additional endocrine complaints Hematologic/Lymphatic: Reports no additional hematologic/lymphatic complaints Allergic/Immunologic: Reports no additional allergic/immunologic complaints Reports system reviewed and no additional complaints, except as documented and Reports Abnormal speech present [facility] Past Medical History Medical History Depression Social History Social History Household Members: Children Household Members Other:: common law and 40 year old son. Housing: Homeless Do you presently have visiting nurse or other home services: No Unable to assess alcohol history related to: Unknown Patient Tobacco Use Status: Never used Tobacco Second Hand Smoke Exposure: No Substance Use Type: Marijuana service: Yes ([employer]) Sexual orientation: Straight/Heterosexual Physical Exam ED Vital Signs: Vital Signs - 24 hr 08/15/24 21:15 Temperature 98.1 F Pulse Rate 100 Respiratory Rate 16 Blood Pressure 117/89 Pulse Oximetry 97 Oxygen Delivery Method Room Air Vital signs have been reviewed and appear to be correct. Blood pressure elevated. Heart rate normal. Respiratory rate normal. Temperature normal. Oxygen saturation normal. Appearance: Alert. Oriented X3. No acute distress. Head: Normal external exam. Normocephalic. Atraumatic. No [place] signs noted. No raccoon eyes noted Eyes: PERRLA. EOMI. Conjunctiva and sclera normal. Eyelids normal. ENT: TM's Normal. Pharynx normal. Uvula midline. Moist mucous membranes. No trismus noted. No drooling noted. No muffled voice noted. Neck: Normal inspection. Neck supple. FROM. No adenopathy. Thyroid Normal. No meningeal signs. No neck mass noted. CVS: Normal heart rate and rhythm. Heart sound normal. No murmurs noted. Pulses normal throughout. Respiratory: No respiratory distress. Painless inspiration. Breath sounds normal. No wheezes/rales/rhonchi noted. Chest nontender. No accessory muscle usage noted or decreased air movement noted. Abdomen: Soft and nontender. Bowel sounds normal in all 4 quadrants. No distention noted. No organomegaly noted. No visible injury noted. Back: No CVA tenderness. Full range of motion noted. Skin: Skin warm and dry. Normal skin color. Normal skin turgor. No rashes/lesions/lacerations noted. Extremities: bilateral feet exam: Decreased light touch sensation to both feet more over bilateral toes, PT/ DP pulsation is strong bilaterally, Neuro: Oriented X 3. Cranial nerve exam: II-XII are grossly intact No motor deficit. No sensory deficit. Reflexes normal. Course Reevaluation(s) Reevaluation #1: 63-year-old homeless, T2 DM, blood sugar is under okay control, no DKA, patient otherwise declined SI or HI, bilateral feet numbness with normal neuro exam otherwise could be related to peripheral diabetic neuropathy. Patient otherwise is requesting to stay in the ER till tomorrow morning. Time: 02:00 Medical Decision Making Differential Diagnosis Differential Diagnoses: The differential diagnosis associated with the presentation includes ( hyperglycemia, DKA, dehydration, electrolyte derangement, severe anemia, peripheral neuropathy.) Admission/Observation Consideration of admission/observation: Escalation of care including admission/observation considered Lab Data MDM Lab Attestation statement: I reviewed the patient's lab results. Discharge Plan Discharge Clinical Impression: Diabetic peripheral neuropathy Patient Disposition: Home, Self-Care Instructions: Diabetic Neuropathy (ED) Prescriptions: No Action Trulicity 1.5 mg/0.5 mL pen injector 1.5 mg subcut QWEEK Qty: 4 0RF trazodone 50 mg Tablet 50 mg PO BEDTIME MRX1 PRN (Reason: Insomnia) Qty: 7 4RF gabapentin 300 mg Capsule 300 mg PO BEDTIME Qty: 7 4RF atorvastatin 20 mg tablet 20 mg PO DAILY Qty: 7 4RF losartan 25 mg tablet 25 mg PO DAILY Qty: 7 4RF fluoxetine 20 mg capsule 20 mg PO BEDTIME acetaminophen 325 mg tablet 975 mg PO Q6H PRN (Reason: Headache/Pain, Scale 1-10) Print Language: Ghanaian
[2024-08-15 21:42] LABS: Glucose, Whole Blood 127 mg/dL (60-115)
[2024-08-15 21:44] LABS: MANUAL DIFF FLAG NO
[2024-08-15] MEDS: Multivitamin TABLET 1 TAB PO (21:45)
[2024-08-15] MEDS: Folic Acid 1 MG TABLET PO (21:45)
[2024-08-15] MEDS: hydrOXYzine HCL 50 MG TABLET PO (21:45)
[2024-08-15] MEDS: Thiamine HCL 100 MG TABLET PO (21:45)
[2024-08-15] MEDS: 0.9 % Sodium Chloride 1,000 ML 999 ML IV (21:45)
[2024-08-15 21:47] LABS: Basophils Absolute Auto 0.1 X10*3/uL (0.0-0.2); Basophils Percent Auto 0.6 % (0-2); Eosinophils Absolute Auto 0.1 X10*3/uL (0.0-0.4); Eosinophils Percent Auto 0.9 % (0-4); Hematocrit 38.4 % (42.0-52.0); Hemoglobin 13.2 g/dl (14.0-18.0); Imm Gran Abs Auto 0.04 X10*3/uL (0.00-0.03); Imm Gran Pct Auto 0.4 % (0.0-0.4); Lymphocytes Absolute Auto 1.9 X10*3/uL (1.2-4.9); Lymphocytes Percent Auto 18.3 % (20-40); Mean Corpuscular HGB Conc 34.4 g/dl (31.0-36.0); Mean Corpuscular Hemoglobin 31.3 pg (27.0-33.0); Mean Platelet Volume 11.3 fL (9.4-12.4); Monocytes Absolute Auto 0.6 X10*3/uL (0.1-1.2); Monocytes Percent Auto 5.6 % (2-11); Neutrophils Absolute Auto 7.6 x10*3/uL (2.0-8.3); Neutrophils Percent Auto 74.2 % (45-73); Platelet Count 199 X10*3/uL (160-400); Red Blood Count 4.22 X10*6/uL (4.60-5.80); Red Cell Distribution Width 13.2 % (11.0-16.0); White Blood Count 10.3 X10*3/uL (4.8-10.8)
[2024-08-15 21:55] VITALS: BP 117/89; PULSE 100; RESP 16; TEMP 36.7; O2SAT 97; BMI 29.1
[2024-08-15 22:01] LABS: Anion Gap 15 (12-20); Blood Urea Nitrogen 19 mg/dL (9-16); Calcium 9.4 mg/dL (8.4-10.2); Carbon Dioxide 24 mmol/L (22-29); Chloride 109 mmol/L (96-108); Creatinine Clr Calc Pharmacy 85.3; Estimated Glomerular Filt Rate > 60; Glucose Random 122 mg/dL (60-115); Potassium 4.3 mmol/L (3.3-5.1); Sodium 144 mmol/L (135-145)
[2024-08-16 03:40] VITALS: BP 126/70; PULSE 72; RESP 16; TEMP 36.6; O2SAT 97
--- NOTE | 2024-08-16 06:02 | PC.NURSE ---
Reviewed discharge instructions with pt, pt verbalized understanding, no sign of distress. pt has a steady gait.
[2024-08-16 06:07] VITALS: BP 126/70; PULSE 72; RESP 16; TEMP 36.6; O2SAT 97
== END 2024-08-16 06:10 | disposition home or self-care (01) ==
PROVIDERS: Emergency Provider Emergency Medicine; PCP Registered Nurse
DX: E11.42 Type 2 diabetes mellitus with diabetic polyneuropathy (principal); R11.0 Nausea; Z79.899 Other long term (current) drug therapy
CPT/HCPCS: 36415; 80048; 82947; 83735; 85025; 96360; 99284